=== PATIENT | female | born 1990 | race Caucasian/White ===

== ENCOUNTER 2020-06-19 11:29 | Outpatient (REF) | payer OTHER, SELFPAY | END 2020-06-19 11:30 | disposition home or self-care (01) | LOC: HO.LNP 11:29 | PROVIDERS: Visit Provider Hospitalist | DX: Z20.828 Contact with and (suspected) exposure to other viral communicable diseases (principal) | CPT/HCPCS: C9803; U0003 ==

== ENCOUNTER 2020-08-29 15:08 | Outpatient (REF) | payer OTHER, SELFPAY ==
[2020-08-30 12:28] LABS: BV Int Neg Control Negative (Negative); BV Int Pos Control Positive (Positive)
== END 2020-08-29 15:09 | disposition home or self-care (01) ==
LOC: HO.LAB 15:08
PROVIDERS: Visit Provider Nurse Practitioner Family
DX: Z11.3 Encounter for screening for infections with a predominantly sexual mode of transmission (principal)
CPT/HCPCS: 87480; 87510; 87660

== ENCOUNTER 2024-03-25 13:27 | Outpatient (AMB) | payer OTHER, SELFPAY ==
[2024-03-25 13:32] VITALS: BP 126/88; PULSE 72; O2SAT 98; BMI 27.2
--- NOTE | 2024-03-25 13:32 | MHC.PC.OV ---
Vital Signs 03/25/24 13:32 Height 5 ft 2 in Weight 149 lb BMI 27.2 BP 126/88 Blood Pressure Location Rt brachial Position Sitting Pulse 72 Pulse Source Pulse Oximeter Pulse Oximetry (%) 98 Oxygen Delivery Method Room Air Intake Visit Reasons: PE- see comments Intake Note: Pt is here today for PE. Allergies Sulfa (Sulfonamide Antibiotics) Allergy (Unknown, Verified 03/25/24 13:39) unknown sulfamethoxazole [From Bactrim] Allergy (Unknown, Verified 03/25/24 13:39) unknown trimethoprim [From Bactrim] Allergy (Unknown, Verified 03/25/24 13:39) unknown Medication List - Last Reconciled 03/25/24 by Hanh Moran MD albuterol sulfate 90 mcg/actuation inhalation amlodipine 2.5 mg PO DAILY metronidazole 0.75%(37.5mg/5gram) 1 appful vaginal DAILY 5 days Tobacco use date assessed: 03/25/24 Dental Screening Dental Screen Date: 03/25/24 Did you have a dental visit in the last 12 months?: Yes Did you have a dental problem in the last 6 months where you did not have access to dental care?: No Was dental information given to patient?: Patient has dentist HPI PE- see comments HPI Details Patient presents for physical. She reports of episodes of elevated blood pressure for the last year. She had a baby 2 years ago. Patient used to take amlodipine for hypertension before her 1st 4 years ago. She had 2 uneventful pregnancies without need to take antihypertensive medication. Her weight has been fluctuating but patient has been trying to is well-balanced diet and walk daily [facility] Medical History (Updated 03/25/24 @ 15:08 by Hanh Moran MD) Migraine Giron palsy HTN (hypertension) Surgical History History of surgery Family History Father No problems noted. Mother History of CVA (cerebrovascular accident) Mental health disorder HTN (hypertension) Social History Housing: House Patient Tobacco Use Status: Never used Tobacco e-Cigarette/Vaping Use: Never Used service: No Current occupational status: employed Cognitive needs: No Hearing needs: No Vision needs: Yes Questionnaire PHQ-9 Over the last 2 weeks, how often have you been bothered by any of the following problems? 1. Little interest or pleasure in doing things: not at all 2. Feeling down, depressed, or hopeless: not at all 3. Trouble falling or staying asleep, or sleeping too much: not at all 4. Feeling tired or having little energy: several days 5. Poor appetite or overeating: not at all 6. Feeling bad about yourself - or that you are a failure or have let yourself or your family down: not at all 7. Trouble concentrating on things, such as reading the newspaper or watching television: not at all 8. Moving or speaking so slowly that other people could have noticed. Or the opposite - being so fidgety or restless that you have been moving around a lot more than usual: not at all 9. Thoughts that you would be better off or of hurting yourself in some way: not at all Total score: 1 Depression Screening Interpretation: Negative Depression Screening Done: Yes 62603 - PHQ-9 Billing: Yes Source: Developed by Drs. Erasmo Rachel, Isabel Bennett, Lauro Ramírez and colleagues, with an educational venus from [employer]. Thrive Questionnaire Date Thrive assessed: 03/25/24 I am a: Patient What is your living situation today?: I have a steady place to live Within the past 12 months, did the food you bought not last and you didn't have the money to get more?: I choose not to answer this question Within the past 12 months, did you worry whether your food would run out before you got money to buy more?: I choose not to answer this question Do you have trouble paying for medicines?: No Do you have trouble getting transportation to medical appointments?: No Do you have trouble paying your heating and electricity bill?: No Do you have trouble taking care of your child, family member or friend?: No Do you have trouble with day-to-day activities such as bathing, preparing meals, shopping, managing finances, etc.?: No Are you currently unemployed and looking for a job?: No Are you interested in more education?: Yes Please select the resources that you would like help with: Housing/[facility] Currently or been in a relationship where the following occur: No concerns reported THRIVE Score: 0 AUDIT C Alcohol Use Questionnaire (AUDIT-C) 1. How often do you have a drink containing alcohol?: 2-4 times a month 2. How many drinks containing alcohol do you have on a typical day when you are drinking?: 1 or 2 3. How often do you have six or more drinks on one occasion?: Never Total Score: 2 RAMAN-7 AMB Questionnaire RAMAN-7 Date RAMAN - 7 assessed: 03/25/24 Feeling nervous, anxious, or on edge: 0 = Not at all Not being able to stop or control worryin = Not at all Worrying too much about different things: 1 = Several days Trouble relaxin = Several days Being so restless that it is hard to sit still: 0 = Not at all Becoming easily annoyed or irritable: 1 = Several days Feeling afraid as if something awful might happen: 0 = Not at all Total RAMAN-7 score (0-4 normal; 5-9 mild; 10-14 moderate; 15-21 severe): 3 Source: Developed by Drs. Erasmo Rachel, Isabel Bennett, Lauro Ramírez and colleagues, with an educational venus from [employer]. RAMAN-7 Assessment Billing RAMAN-7 Assessment Tool: RAMAN-7 Assessment 45356 Review of Systems Const All systems reviewed & are unremarkable except as noted in HPI and below Eyes Reports no additional complaints ENT Reports no additional complaints Card Reports no additional complaints Resp Reports no additional complaints GI Reports no additional complaints Physical exam (Primary Care) Vital Signs: Last Vital Signs Pulse 72 03/25/24 13:32 BP 126/88 03/25/24 13:32 Pulse Ox 98 03/25/24 13:32 Oxygen Delivery Method Room Air 03/25/24 13:32 BMI result Body Mass Index 27.2 Tobacco/Smoking Status: Tobacco use Status Tobacco use date assessed 03/25/24 03/25/24 13:44 Patient Tobacco Use Status Never used Tobacco 03/25/24 13:44 e-Cigarette/Vaping Use Never Used 03/25/24 13:44 PHQ-9: PHQ-9 Score PHQ-9: Total score 1 03/25/24 13:44 Depression Screening Interpretation: Negative Thrive Assessment: Date of Thrive Assessment Date Thrive assessed 03/25/24 03/25/24 13:44 Currently or been in a relationship where the following occur: No concerns reported Const General: no acute distress HENMT Head: Yes normal to inspection Face and sinus: Yes normal facial exam Mouth: Normal oral and palatal mucosa present Eyes General: appearance normal, both eyes and all related structures Neck Neck: Yes supple Resp Effort & Inspection: normal respiratory effort Auscultation: clear to auscultation bilaterally Cardio Rhythm: regular rhythm Heart sounds: S1 normal heart sound present and S2 normal heart sound present GI Inspection: Yes normal to inspection Palpation (GI): Soft to palpation Percussion: Yes normal to percussion Assessment and Plan Assessment & Plan (1) Annual physical exam: Code(s): Z00.00 - Encounter for general adult medical examination without abnormal findings Plan: Well-balanced diet regular exercise low-sodium diet discussed with the patient. She is up-to-date with the Pap smear by sales agent insurance (2) HTN (hypertension): Code(s): I10 - Essential (primary) hypertension Plan: Start 2.5 mg of amlodipine. Low-sodium diet regular exercise discussed with the patient and follow-up in 6 weeks. Patient will have a fasting blood work before Orders: Orders Complete Blood Count Auto Diff Today Z00.00 - Encounter for general adult medical examination without abnormal findings UA w Microscopic Today Z00.00 - Encounter for general adult medical examination without abnormal findings Comprehensive [place]. Panel Fast Today Z00.00 - Encounter for general adult medical examination without abnormal findings Lipid Panel Today Z00.00 - Encounter for general adult medical examination without abnormal findings Medications: New amlodipine 2.5 mg PO DAILY 90 tabs 0RF Changed From albuterol sulfate 90 mcg/actuation inhalation To albuterol sulfate 90 mcg/actuation 2 puffs inhalation Q6-8H 30 days 6.7 grams 4RF Coding Level of Care Code Est Pt Prev Care 18-39y(28417) Diagnoses Annual physical exam Z00.00 HTN (hypertension) I10 Additional Codes RAMAN-7 Assessment Billing - RAMAN-7 Assessment Tool: RAMAN-7 Assessment 45593 ([id number])
== END 2024-03-25 14:30 | disposition home or self-care (01) ==
PROVIDERS: PCP Internal Medicine; Visit Provider Internal Medicine
DX: Z00.00 Encounter for general adult medical examination without abnormal findings (principal); I10 Essential (primary) hypertension
CPT/HCPCS: 99395

== ENCOUNTER 2024-06-04 12:34 | Outpatient (AMB) | payer OTHER, SELFPAY ==
[2024-06-04 12:43] VITALS: BP 138/80; PULSE 65; O2SAT 98; BMI 27.4
--- NOTE | 2024-06-04 12:43 | A.OFFPC_ITS ---
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 Accompanied by: Self / Same As Patient Allergies Sulfa (Sulfonamide Antibiotics) Allergy (Unknown, Verified 06/04/24 12:44) unknown sulfamethoxazole [From Bactrim] Allergy (Unknown, Verified 06/04/24 12:44) unknown trimethoprim [From Bactrim] Allergy (Unknown, Verified 06/04/24 12:44) unknown Medication List - Last Reconciled 06/04/24 by Hanh Moran MD amlodipine 2.5 mg PO DAILY Ventolin HFA 90 mcg/actuation (albuterol sulfate) 2 puffs inhalation Q6-8H 30 days NS Tobacco use date assessed: 03/25/24 Dental Screening Dental Screen Date: 03/25/24 HPI 6 Week Bld Pres Check HPI Details Patient presents for the follow-up on hypertension. She has been tolerating 2.5 mg of amlodipine,exercising regularly and eating well-balanced diet. [facility] Medical History Migraine Giron palsy HTN (hypertension) Surgical History History of surgery Family History Father No problems noted. Mother History of CVA (cerebrovascular accident) Mental health disorder HTN (hypertension) Social History Housing: House Patient Tobacco Use Status: Never used Tobacco e-Cigarette/Vaping Use: Never Used service: No Current occupational status: employed Cognitive needs: No Hearing needs: No Vision needs: Yes Questionnaire Thrive Questionnaire Date Thrive assessed: 03/22/24 I am a: Patient What is your living situation today?: I have a steady place to live Within the past 12 months, did the food you bought not last and you didn't have the money to get more?: I choose not to answer this question Within the past 12 months, did you worry whether your food would run out before you got money to buy more?: I choose not to answer this question Do you have trouble paying for medicines?: No Do you have trouble getting transportation to medical appointments?: No Do you have trouble paying your heating and electricity bill?: No Do you have trouble taking care of your child, family member or friend?: No Do you have trouble with day-to-day activities such as bathing, preparing meals, shopping, managing finances, etc.?: No Are you currently unemployed and looking for a job?: No Are you interested in more education?: Yes Please select the resources that you would like help with: None Currently or been in a relationship where the following occur: No concerns reported THRIVE Score: 0 RAMAN-7 AMB Questionnaire RAMAN-7 Date RAMAN - 7 assessed: 03/25/24 Source: Developed by Drs. Erasmo Rachel, Isabel Bennett, Lauro Ramírez and colleagues, with an educational venus from [employer]. Review of Systems Const All systems reviewed & are unremarkable except as noted in HPI and below Card Reports no additional complaints Resp Reports no additional complaints GI Reports no additional complaints Physical exam (Primary Care) Vital Signs: Last Vital Signs Pulse 65 06/04/24 12:43 BP 138/80 06/04/24 12:43 Pulse Ox 98 06/04/24 12:43 BMI result Body Mass Index 27.4 Tobacco/Smoking Status: Tobacco use Status Tobacco use date assessed 03/25/24 06/04/24 12:47 Patient Tobacco Use Status Never used Tobacco 06/04/24 12:47 e-Cigarette/Vaping Use Never Used 06/04/24 12:47 Thrive Assessment: Date of Thrive Assessment Date Thrive assessed 03/22/24 06/04/24 12:47 Currently or been in a relationship where the following occur: No concerns reported Const General: no acute distress Neck Neck: Yes supple Resp Effort & Inspection: normal respiratory effort Auscultation: clear to auscultation bilaterally Cardio Rhythm: regular rhythm Heart sounds: S1 normal heart sound present and S2 normal heart sound present Coding Level of Care Code Est Pt Level 3 (16810) Diagnoses HTN (hypertension) I10 Assessment & Plan Assessment & Plan (1) HTN (hypertension): Code(s): I10 - Essential (primary) hypertension Category: Medical Plan: Increase amlodipine to 5 mg a day patient will return for fasting blood work follow-up in 6 weeks Medications: New amlodipine 5 mg PO DAILY 90 tabs 0RF Discontinued amlodipine Discontinued Reason: Doctor's Order 2.5 mg PO DAILY 90 tabs 0RF
== END 2024-06-04 13:05 | disposition home or self-care (01) ==
PROVIDERS: PCP Internal Medicine; Visit Provider Internal Medicine
DX: I10 Essential (primary) hypertension (principal)

== ENCOUNTER → 2024-06-04 12:34 | Outpatient (BNVA) | payer OTHER, SELFPAY | PROVIDERS: PCP Internal Medicine; Visit Provider Internal Medicine | DX: I10 Essential (primary) hypertension (principal); Z79.899 Other long term (current) drug therapy | CPT/HCPCS: 99212 ==

== ENCOUNTER 2024-07-22 07:36 | Outpatient (REF) | payer OTHER, SELFPAY ==
[2024-07-22 10:14] LABS: MANUAL DIFF FLAG NO
[2024-07-22 10:25] LABS: Basophils Percent Auto 0.8 % (0-2); Eosinophils Percent Auto 1.1 % (0-4); Hematocrit 35.9 % (37.0-47.0); Hemoglobin 12.1 g/dl (12.0-16.0); Imm Gran Abs Auto 0.01 X10*3/uL (0.00-0.03); Imm Gran Pct Auto 0.3 % (0.0-0.4); Lymphocytes Absolute Auto 1.5 X10*3/uL (1.2-4.9); Lymphocytes Percent Auto 40.9 % (20-40); Mean Corpuscular HGB Conc 33.7 g/dl (31.0-35.0); Mean Corpuscular Hemoglobin 28.9 pg (27.0-33.0); Mean Corpuscular Volume 85.9 fL (80.0-98.0); Mean Platelet Volume 10.3 fL (9.4-12.3); Monocytes Absolute Auto 0.3 X10*3/uL (0.1-1.2); Monocytes Percent Auto 8.1 % (2-11); Neutrophils Absolute Auto 1.7 x10*3/uL (2.0-8.3); Neutrophils Percent Auto 48.8 % (45-73); Platelet Count 265 X10*3/uL (160-400); Red Blood Count 4.18 X10*6/uL (4.20-5.50); Red Cell Distribution Width 11.9 % (11.0-16.0); White Blood Count 3.6 X10*3/uL (4.8-10.8)
[2024-07-22 10:44] LABS: Alanine Aminotransferase 9 U/L (0-31); Alkaline Phosphatase 50 U/L (39-117); Anion Gap 10 (12-20); Aspartate Amino Transferase 19 U/L (5-31); Bilirubin Total 0.9 mg/dL (0.0-1.0); Blood Urea Nitrogen 11 mg/dL (9-16); Calcium 9.4 mg/dL (8.4-10.2); Carbon Dioxide 27 mmol/L (22-29); Chloride 107 mmol/L (96-108); Cholesterol 160 mg/dL (<200); Estimated Glomerular Filt Rate > 60; Glucose Fasting 83 mg/dL (60-99); HDL Cholesterol 60 mg/dL (>40); LDL Cholesterol Calculated 90 mg/dL (<100); Potassium 3.5 mmol/L (3.3-5.1); Sodium 140 mmol/L (135-145); Triglycerides 54 mg/dL (<150)
[2024-07-22 11:18] LABS: Appearance Urine Clear; Color Urine Dark Yellow; Glucose Urine UA Negative (Negative); Leukocyte Esterase Urine Trace (Negative); Nitrite Urine Negative (Negative); PH 6.5 (5.0-9.0); UMIC TRIGGER UA YES; Urine Blood Negative (Negative); Urine Ketones Trace mg/dL (Negative); Urine Protein Negative (Neg-Trace)
[2024-07-22 11:32] LABS: Bacteria Urine None Seen (None Seen); Hyaline Casts Urine 0-2 /LPF (0-2); Squamous Epithelial Cell Urine 0-2 /HPF (0-2); WBC Urine 0-5 /HPF (0-5)
[2024-07-22 11:34] LABS: RBC Urine 0-2 /HPF (0-2)
== END 2024-07-22 07:37 | disposition home or self-care (01) ==
LOC: HO.HMGCLDS 07:36
PROVIDERS: PCP Internal Medicine; Visit Provider Internal Medicine
DX: Z00.00 Encounter for general adult medical examination without abnormal findings (principal)
CPT/HCPCS: 36415; 80053; 80061; 81001; 85025

== ENCOUNTER 2024-08-20 08:46 | Outpatient (REF) | payer OTHER, SELFPAY ==
[2024-08-20 14:40] LABS: Bacterial Vaginosis PCR NEGATIVE (Negative); Candida Group PCR NOT DETECTED (Not Detect); Candida glab krusei PCR DETECTED (Not Detect); Trichomonas vaginalis PCR NOT DETECTED (Not Detect)
== END 2024-08-20 08:47 | disposition home or self-care (01) ==
LOC: HO.LAB 08:46
PROVIDERS: PCP Internal Medicine; Visit Provider Internal Medicine
DX: N76.0 Acute vaginitis (principal); I10 Essential (primary) hypertension
CPT/HCPCS: 81515; 96127; 99212

== ENCOUNTER 2024-08-20 08:46 | Outpatient (AMB) | payer OTHER, SELFPAY ==
[2024-08-20 08:49] VITALS: BP 118/80; PULSE 71; O2SAT 100; BMI 27.1
--- NOTE | 2024-08-20 08:49 | MHC.PC.OV ---
Vital Signs 08/20/24 08:49 Height 5 ft 2 in Weight 148 lb BMI 27.1 BP 118/80 Blood Pressure Location Lt brachial Position Sitting Pulse 71 Pulse Source Pulse Oximeter Pulse Oximetry (%) 100 Oxygen Delivery Method Room Air Intake Visit Reasons: 6 weeks follow up Intake Note: Pt is here today for 6 weeks follow up visit. Allergies Sulfa (Sulfonamide Antibiotics) Allergy (Unknown, Verified 08/20/24 08:50) unknown sulfamethoxazole [From Bactrim] Allergy (Unknown, Verified 08/20/24 08:50) unknown trimethoprim [From Bactrim] Allergy (Unknown, Verified 08/20/24 08:50) unknown Medication List - Last Reconciled 08/20/24 by Hanh Moran MD amlodipine 5 mg PO DAILY Ventolin HFA 90 mcg/actuation (albuterol sulfate) 2 puffs inhalation Q6-8H 30 days NS Tobacco use date assessed: 08/20/24 Dental Screening Dental Screen Date: 08/20/24 Did you have a dental visit in the last 12 months?: Yes Did you have a dental problem in the last 6 months where you did not have access to dental care?: No Was dental information given to patient?: Patient has dentist HPI 6 weeks follow up HPI Details Pt presents for f/u HTN, well controlled on Amlodipne. Patient reports vaginal discharge similar to when she was diagnosed with BV. [facility] Medical History Migraine Giron palsy HTN (hypertension) Surgical History History of surgery Family History Father No problems noted. 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 1. Little interest or pleasure in doing things: not at all 2. Feeling down, depressed, or hopeless: not at all 3. Trouble falling or staying asleep, or sleeping too much: not at all 4. Feeling tired or having little energy: not at all 5. Poor appetite or overeating: not at all 6. Feeling bad about yourself - or that you are a failure or have let yourself or your family down: not at all 7. Trouble concentrating on things, such as reading the newspaper or watching television: not at all 8. Moving or speaking so slowly that other people could have noticed. Or the opposite - being so fidgety or restless that you have been moving around a lot more than usual: not at all 9. Thoughts that you would be better off or of hurting yourself in some way: not at all Total score: 0 Depression Screening Interpretation: Negative Depression Screening Done: Yes 11449 - PHQ-9 Billing: Yes Source: Developed by Drs. Erasmo Rachel, Isabel Bennett, Lauro Ramírez and colleagues, with an educational venus from [employer]. Thrive Questionnaire Date Thrive assessed: 08/19/24 I am a: Patient What is your living situation today?: I have a steady place to live Within the past 12 months, did the food you bought not last and you didn't have the money to get more?: Never true Within the past 12 months, did you worry whether your food would run out before you got money to buy more?: Never true Do you have trouble paying for medicines?: No Do you have trouble getting transportation to medical appointments?: No Do you have trouble paying your heating and electricity bill?: No Do you have trouble taking care of your child, family member or friend?: No Do you have trouble with day-to-day activities such as bathing, preparing meals, shopping, managing finances, etc.?: No Are you currently unemployed and looking for a job?: No Are you interested in more education?: Yes Please select the resources that you would like help with: None Currently or been in a relationship where the following occur: No concerns reported THRIVE Score: 0 AUDIT C Alcohol Use Questionnaire (AUDIT-C) 1. How often do you have a drink containing alcohol?: Monthly or less 2. How many drinks containing alcohol do you have on a typical day when you are drinking?: 1 or 2 3. How often do you have six or more drinks on one occasion?: Never Total Score: 1 RAMAN-7 AMB Questionnaire RAMAN-7 Date RAMAN - 7 assessed: 08/20/24 Feeling nervous, anxious, or on edge: 0 = Not at all Not being able to stop or control worryin = Not at all Worrying too much about different things: 0 = Not at all Trouble relaxin = Several days Being so restless that it is hard to sit still: 0 = Not at all Becoming easily annoyed or irritable: 0 = Not at all Feeling afraid as if something awful might happen: 0 = Not at all Total RAMAN-7 score (0-4 normal; 5-9 mild; 10-14 moderate; 15-21 severe): 1 Source: Developed by Drs. Erasmo Rachel, Isabel Bennett, Lauro Ramírez and colleagues, with an educational venus from [employer]. RAMAN-7 Assessment Billing RAMAN-7 Assessment Tool: RAMAN-7 Assessment 96318 Review of Systems Const All systems reviewed & are unremarkable except as noted in HPI and below Eyes Reports no additional complaints ENT Reports no additional complaints Card Reports no additional complaints Resp Reports no additional complaints GI Reports no additional complaints Reports no additional complaints Physical exam (Primary Care) Vital Signs: Last Vital Signs Pulse 71 08/20/24 08:49 BP 118/80 08/20/24 08:49 Pulse Ox 100 08/20/24 08:49 Oxygen Delivery Method Room Air 08/20/24 08:49 BMI result Body Mass Index 27.1 Tobacco/Smoking Status: Tobacco use Status Tobacco use date assessed 08/20/24 08/20/24 08:55 Patient Tobacco Use Status Never used Tobacco 08/20/24 08:49 e-Cigarette/Vaping Use Never Used 08/20/24 08:49 PHQ-9: PHQ-9 Score PHQ-9: Total score 0 08/20/24 08:55 Depression Screening Interpretation: Negative Thrive Assessment: Date of Thrive Assessment Date Thrive assessed 08/19/24 08/20/24 08:49 Currently or been in a relationship where the following occur: No concerns reported Const General: no acute distress HENMT Head: Yes normal to inspection General nose exam: Normal external nose present Face and sinus: Yes normal facial exam Mouth: Normal oral and palatal mucosa present Eyes General: appearance normal, both eyes and all related structures Neck Neck: Yes no lymphadenopathy and Yes supple Resp Effort & Inspection: normal respiratory effort Auscultation: clear to auscultation bilaterally Cardio Rhythm: regular rhythm Heart sounds: S1 normal heart sound present and S2 normal heart sound present GI Inspection: Yes normal to inspection Palpation (GI): Soft to palpation Percussion: Yes normal to percussion Auscultation: normal bowel sounds Coding Level of Care Code Est Pt Level 3 (05816) Diagnoses HTN (hypertension) I10 Vaginosis N76.0 Additional Codes RAMAN-7 Assessment Billing - RAMAN-7 Assessment Tool: RAMAN-7 Assessment 99920 ([id number]) PHQ-9 - 83586 - PHQ-9 Billing: Yes ([id number]) Assessment & Plan Assessment & Plan (1) HTN (hypertension): Code(s): I10 - Essential (primary) hypertension Category: Medical Plan: Continue amlodipine regular physical activity patient will return for physical in April (2) Vaginosis: Code(s): N76.0 - Acute vaginitis Category: Medical Plan: Check vaginal swab Orders: Orders Bacterial Vaginosis Panel Today N76.0 - Acute vaginitis Medications: Refilled amlodipine 5 mg PO DAILY 90 tabs 3RF
== END 2024-08-20 09:34 | disposition home or self-care (01) ==
PROVIDERS: PCP Internal Medicine; Visit Provider Internal Medicine
DX: I10 Essential (primary) hypertension (principal); N76.0 Acute vaginitis

== ENCOUNTER 2024-12-24 08:26 | Outpatient (AMB) | payer OTHER, SELFPAY ==
[2024-12-24 08:36] VITALS: BP 118/78; PULSE 74; TEMP 36.8; O2SAT 98
--- NOTE | 2024-12-24 08:36 | AM.OFFWIN_ITS ---
Intake Vital Signs 12/24/24 08:36 Height 5 ft 2 in BP 118/78 Blood Pressure Location Rt brachial Position Sitting Pulse 74 Pulse Source Pulse Oximeter Temp 98.2 F Temp Source Oral Pulse Oximetry (%) 98 Intake Visit Reasons: EP ? strep throat and UTI Patient Tobacco Use Status: Never used Tobacco Allergies Sulfa (Sulfonamide Antibiotics) Allergy (Unknown, Verified 12/24/24 08:36) unknown sulfamethoxazole [From Bactrim] Allergy (Unknown, Verified 12/24/24 08:36) unknown trimethoprim [From Bactrim] Allergy (Unknown, Verified 12/24/24 08:36) unknown Do you need a note to return to daycare/school/sports/work: Yes PFSH Medical History Migraine Giron palsy HTN (hypertension) Surgical History History of surgery Family History Father No problems noted. 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[employer] Housing: House Patient Tobacco Use Status: Never used Tobacco e-Cigarette/Vaping Use: Never Used service: No Current occupational status: employed Cognitive needs: No Hearing needs: No Vision needs: Yes Physical Exam Vital Signs: Last Vital Signs Temp 98.2 F 12/24/24 08:36 Pulse 74 12/24/24 08:36 BP 118/78 12/24/24 08:36 Pulse Ox 98 12/24/24 08:36 Results AMB Urinalysis, Automated UA Leukoctes 0 Petra/uL Last Edit by Radha Baugh CMA on 12/24/24 08:44 UA Nitrite Negative Last Edit by Radha Baugh CMA on 12/24/24 08:44 UA Urobilinogen 0.2 mg/dL Last Edit by Radah Baugh CMA on 12/24/24 08:44 UA Protein 0 mg/dL Last Edit by Radha Baugh CMA on 12/24/24 08:44 UA pH 7.0 Last Edit by Radha Baugh CMA on 12/24/24 08:44 UA Blood 10 Donovan/uL Last Edit by Radha Baugh CMA on 12/24/24 08:44 UA Specific [place] 1.010 Last Edit by Radha Baugh CMA on 12/24/24 08:44 UA Ketone Negative Last Edit by Radha Baugh CMA on 12/24/24 08:44 UA Bilirubin 0 mg/dL Last Edit by Radha Baugh CMA on 12/24/24 08:44 UA Glucose 0 mg/dL Last Edit by Radha Baugh CMA on 12/24/24 08:44 AMB Rapid Strep AMB Rapid Strep Negative Last Edit by Irving Bradley CMA on 12/24/24 08 :48 Results Reviewed Results Reviewed: Laboratory Last Values Urine pH (Auto) 7.0 12/24/24 08:42 Specific [place] (Auto) 1.010 12/24/24 08:42 Urine Protein (Auto) 0 mg/dL 12/24/24 08:42 Glucose (UA)(Auto) 0 mg/dL 12/24/24 08:42 Urine Ketones (Auto) Negative 12/24/24 08:42 Urine Blood (Auto) 10 Donovan/uL 12/24/24 08:42 Urine Nitrite (Auto) Negative 12/24/24 08:42 Urine Bilirubin (Auto) 0 mg/dL 12/24/24 08:42 Urine Urobilinogen (Auto) 0.2 mg/dL 12/24/24 08:42 Leukocyte Esterase (Auto) 0 Petra/uL 12/24/24 08:42 Strep Scn Rapid Clinic Negative 12/24/24 08:47 Assessment & Plan Assessment & Plan (1) Sore throat: Code(s): J02.9 - Acute pharyngitis, unspecified Plan Patient left before being seen by provider due to family emergency. No assess ment performed. Orders: Orders AMB Urinalysis Automated Today Z13.9 - Encounter for screening, unspecified AMB Rapid Strep Screen Today Z13.9 - Encounter for screening, unspecified Coding Level of Care Code Left Without Being Seen Diagnoses Sore throat J02.9
--- OUTSIDE RECORDS SUMMARY | 2024-12-24 08:37 | XMS_ITS | Encounter Summary ---
Author Organization [facility] Address [address] [place] [address] Care Team Providers Care Primary Special Educator Name Role Phone Wilfrid Razo Primary Care Provider [phone] Abbey Rubin [facility] Unavailable [phone] Janey Rodarte MD Primary Care Provider [phone] Reason for Visit * Reason Comments Medication Refill Encounter Details Date Type Department Care Team (Late st Contact Info) Description 11/04/2017 Refill [facility] [address] [place] [phone] Lisbeth Bloom MD [address] [place], [place] [phone] Encounter for gynecological examination without abnormal finding; Encounter for surveillance of contraceptive pills Social History Tobacco Use Types Packs/Day Years Used Date Smoking Tobacco: Never Smokeless Tobacco: Never Alcohol Use Standard Drinks/Week Comments Yes 1 (1 standard drink = 0.6 oz pur e alcohol) Comments No Sex and Gender Information Value Date Recorded Sex Assigned at Not on file Legal Sex Female 1:59 PM EDT Gender Identity Not on file Sexual Orientation Not on file documented as of this encounter Miscellaneous Notes * Telephone Encounter - Lisbeth Bloom MD - 11/04/2017 9:51 AM EDT Patient does have an upcoming appointment and so will refill one time and if all well at exam, provider can refill for the year documented in this encounter Plan of Treatment Not on file documented as of this encounter Visit Diagnoses Diagnosis Encounter for gynecological examination without abnormal finding Encounter for surveillance of contraceptive pills documented in this encounter Care Teams Primary Special Educator Relationship Specialty Start Date End Date LauritaWilfrid leon DO [place] PCP - General Internal Medicine 07/08/16 02/11/19 Janey Rodarte MD [address] [address] PCP - General Internal Medicine 02/12/19 09/30/21 Abbey Rubin, SOFTWARE VALIDATION ENGINEER [address] [facility] [address] [place] [address] [facility] Community Wood Grinder 06/29/1807/10 documented as of this encounter
--- OUTSIDE RECORDS SUMMARY | 2024-12-24 08:37 | XMS_ITS | Encounter Summary ---
Author Organization [facility] Address [address] [place] [address] Care Team Providers Care Sweatband Separator Name Role Phone Wilfrid Razo DO Primary Care Provider [phone] Abbey Rubin [facility] Unavailable [phone] Janey Rodarte MD Primary Care Provider [phone] Encounter Details Date Type Department Care Team (Late st Contact Info) Description 10/01/2017 Scanned Document formerly [facility] [address] [phone] Wilfrid Razo DO [address] [place] [address] Social History Tobacco Use Types Packs/Day Years Used Date Smoking Tobacco: Never Alcohol Use Standard Drinks/Week Comments Not Asked 1 (1 standard drink = 0.6 oz pur e alcohol) Comments No Sex and Gender Information Value Date Recorded Sex Assigned at Not on file Legal Sex Female 1:59 PM EDT Gender Identity Not on file Sexual Orientation Not on file documented as of this encounter Plan of Treatment Not on file documented as of this encounter Visit Diagnoses Not on filedocumented in this encounter Care Teams Sweatband Separator Relationship Specialty Start Date End Date Wilfrid Razo DO PCP - General Internal Medicine 07/08/16 02/11/19 Janey Rodarte MD [address] [facility] [address] PCP - General Internal Medicine 02/12/19 09/30/21 Abbey Rubin, [facility] [address] [address] [facility] Community Crepe Box Tender 06/29/1807/10 documented as of this encounter
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
--- OUTSIDE RECORDS SUMMARY | 2024-12-24 08:37 | XMS_ITS | Encounter Summary ---
Author Organization [facility] Address [address] [place] [address] Care Team Providers Care Automobile Rental Representative Name Role Phone VinceAbbey Mcmullen [employer]LE [employer]ER Unavailable Janey Rodarte MD Primary Care Provider Reason for Visit * Reason Comments Medication Refill Encounter Details Date Type Department Care Team (Late st Contact Info) Description 05/17/2019 Refill [facility] [address] [place] [phone] Lisbeth Bloom MD [address] [place] [phone] Encounter for surveillance of contraceptive pills Social [...] encounter Miscellaneous Notes * Telephone Encounter - Michelle Feng RN - 05/20/2019 9:[address] Peres patient needs an appointment for annual and to discuss control. Patient calledand message left asking her to call back and she has not responded to that message as of today. * Telephone Encounter - Michelle Feng RN - 05/17/2019 2:42 PM EDT Left message asking her to call back. documented in this encounter Plan of Treatment Not on file documented as of this encounter Visit Diagnoses Diagnosis Encounter for surveillance of contraceptive pills documented in this encounter Care Teams Automobile Rental Representative Relationship Specialty Start Date End Date Janey Rodarte MD [address] [address] PCP - General Internal Medicine 02/12/19 09/30/21 Abbey Rubin, SOLE DYER [address] [facility] 4 [place] [address] [facility] Community Pharmacy Retail Support Specialist 06/29/1807/10 documented as of this encounter
--- OUTSIDE RECORDS SUMMARY | 2024-12-24 08:37 | XMS_ITS | Encounter Summary ---
Author Organization [facility] Address [address] [place] [address] Care Team Providers Care Manager Pest Name Role Phone Wilfrid Razo DO Primary Care Provider [phone] Abbey Rubin [facility] Unavailable [phone] Janey Rodarte MD Primary Care Provider [phone] Reason for Visit * Reason Comments Medication Refill Encounter Details Date Type Department Care Team (Late st Contact Info) Description 12/31/2018 Refill [facility] [address] [phone] Wilfrid Razo DO [address] [place] [address] Essential hypertension Social History Tobacco Use Types Packs/Day Years [...] as of this encounter Visit Diagnoses Diagnosis Essential hypertension Unspecified essential hypertension documented in this encounter Care Teams Manager Pest Relationship Specialty Start Date End Date Wilfrid Razo DO PCP - General Internal Medicine 07/08/16 02/11/19 Janey Rodarte MD [address] [address] PCP - General Internal Medicine 02/12/19 09/30/21 Abbey Rubin, B2B SALES REPRESENTATIVE [address] [address] [facility] Community Affiliate Marketing Manager 06/29/1807/10 documented as of this encounter
--- OUTSIDE RECORDS SUMMARY | 2024-12-24 08:37 | XMS_ITS | Encounter Summary ---
Author Organization [facility] Address [address] [place] [address] Care Team Providers Care Unit Aide Tech Name Role Phone Hanh Moran MD Primary Care Provider Emily oquendo Encounter Details Date Type Department Care Team Description 04/15/2022 Orders Only Medical Records [address] [place] [address] Hussain Childers CNM [address] [place] [address] Social History Tobacco Use Types Packs/Day Years Used Date Smoking Tobacco: Never Smokeless Tobacco: Never Alcohol Use Standard Drinks/Week Comments Not Currently 2 (1 standard drink = 0.6 oz pur e alcohol) not drinking since Alcohol Habits Answer Date Recorded How often do you have a drink containing alcohol ? Never 07/21/2019 How many drinks containing a lcohol do you have on a typical day when you are drinking? Not asked How often do you have six or more drinks on one occasion? Not asked Sex Assigned at Date Recorded Not on file Job Start Date Occupation Industry Not on file Not on file Not on file COVID-19 Exposure Response Date Recorded In the last 10 days, have yo u been in contact with someone who was confirmed or suspected to have Coronavirus/COVID-19? No / Unsure 04/12/2022 11:01 AM EDT documented as of this encounter Plan of Treatment Not on file documented as of this encounter Procedures Procedure Name Priority Date/Time Associated Diagnosis Comments OUTSIDE LAB Routine 04/15/2022 documented in this encounter Results * OUTSIDE LAB (04/15/2022) Hussain Childers CNM LAB documented in this encounter Visit Diagnoses Not on filedocumented in this encounter Care Teams Unit Aide Tech Relationship Specialty Start Date End Date Hanh Moran MD PCP - General Internal Medicine 09/08/19 documented as of this encounter
--- OUTSIDE RECORDS SUMMARY | 2024-12-24 08:37 | XMS_ITS | Encounter Summary ---
Author Organization [facility] Address [address] [place] [address] Care Team Providers Care Software Developer Name Role Phone Abbey Donald MD Primary Care Provider Hanh Nobles MD Primary Care Provider Emily oquendo Encounter Details Date Type Department Care Team Description 08/31/2019 Telephone OBGYN - [place] [address] [place] [address] Cynthia Arroyo CNM [address] [place], [place] [phone] Social History Tobacco Use Types Packs/Day Years Used Date Smoking Tobacco: Never Smokeless Tobacco: Never Alcohol Use Standard Drinks/Week Comments No 2 (1 standard drink = 0.6 oz pur e alcohol) not since Alcohol Habits Answer Date Recorded How [...] file Not on file Not on file documented as of this encounter Miscellaneous Notes * Telephone Encounter - Ana Soni M.A. - 08/31/2019 10:47 AM EST ----- Message from Cynthia Arroyo CNM sent at 08/30/2019 4:43 PM EST ----- Please call patient inform her she is positive for a UTI, amoxicillin sent to pharmacy for treatment. documented in this encounter Plan of Treatment Not on file documented as of this encounter Visit Diagnoses Not on filedocumented in this encounter Care Teams Software Developer Relationship Specialty Start Date End Date Abbey Donald MD PCP - General Internal Medicine 08/16/19 09/07/19 Hanh Moran MD PCP - General Internal Medicine 09/08/19 documented as of this encounter
--- OUTSIDE RECORDS SUMMARY | 2024-12-24 08:37 | XMS_ITS | Encounter Summary ---
Author Organization [facility] Address [address] [place] [address] Care Team Providers Care Welfare Project Manager Name Role Phone Hanh Moran MD Primary Care Provider Unavaila ble Reason for Visit * Reason Onset Date Irena Giron 11/27/2019 Encounter Details Date Type Department Care Team Description 11/27/2019 Telephone Adult Urgent Care - [address] [address] Hanh Moran MD Cramps Social History Tobacco Use Types Packs/Day Years [...] encounter Miscellaneous Notes * Telephone Encounter - Hussain Childers CNM - 11/27/2019 11:48 AM EDT Called patient x2 to return call, message left, waiting to hear from patient regarding cramping Hussain Childers CNM * Telephone Encounter - Augusta Flor - 11/27/2019 11:28 AM EDT Patient is 31 weeks , 1st child, having cramping, no appitite documented in this encounter Plan of Treatment Not on file documented as of this encounter Visit Diagnoses Not on filedocumented in this encounter Care Teams Welfare Project Manager Relationship Specialty Start Date End Date Hanh Moran MD PCP - General Internal Medicine 09/08/19 documented as of this encounter
--- OUTSIDE RECORDS SUMMARY | 2024-12-24 08:37 | XMS_ITS | Encounter Summary ---
Author Organization [facility] Address [address] [place] [address] Care Team Providers Care Assistant To The Vice President Name Role Phone Wilfrid Razo DO Primary Care Provider [phone] Abbey Rubin [facility] Unavailable [phone] Janey Rodarte MD Primary Care Provider [phone] Reason for Visit * Reason Comments Medication Refill Encounter Details Date Type Department Care Team (Late st Contact Info) Description 02/05/2019 Refill [facility] [address] [place] [phone] Barrett Gallegos MD Needs valid address Encounter for surveillance of contraceptive pills Social [...] pills documented in this encounter Care Teams Assistant To The Vice President Relationship Specialty Start Date End Date Wilfrid Razo DO PCP - General Internal Medicine 07/08/16 02/11/19 Janey Rodarte MD [address] [facility] [address] PCP - General Internal Medicine 02/12/19 09/30/21 Abbey Rubin, [facility] [address] [facility] 4 [place] [address] [facility] Community Tech Ed/Woodshop Teacher 06/29/1807/10 documented as of this encounter
--- OUTSIDE RECORDS SUMMARY | 2024-12-24 08:38 | XMS_ITS | Encounter Summary ---
Author Organization [facility] Address [address] [place] [address] Care Team Providers Care Armament Mechanic Name Role Phone Hanh Moran MD Primary Care Provider [phone] Encounter Details Date Type Department Care Team (Late st Contact Info) Description 06/22/2024 Lab Requisition [facility] - Main Lab [address] [facility] [place] [phone] Malaika Garcia NP [address] [address] Frequency of micturition Social History Tobacco Use Types Packs/Day Years Used Date Smoking Tobacco: Never Smokeless Tobacco: Never Alcohol Use Standard Drinks/Week Comments Not Currently 2 (1 standard drink = 0.6 oz pur e alcohol) Comments Unknown Sex and Gender Information Value Date Recorded Sex Assigned at Not on file Legal Sex Female 8:30 PM EST Gender Identity Not on file Sexual Orientation Not on file documented as of this encounter Plan of Treatment Not on file documented as of this encounter Procedures Procedure Name Priority Date/Time Associated Diagnosis Comments BACTERIAL IDENTIFICATION AND SUSCEPTIBILITY, AEROBIC Routine 06/21/2024 12:00 AM EST Frequency of micturition documented in this encounter Results * Bacterial identification and susceptibility, aerobic (06/21/2024 12:00 AM EST) Culture, Bacterial ID and Sensitivity Normal harris isolated 06/23/2024 11:23 AM EST [facility] Other Topography unknown / Unknown 06/21/2024 06/22/2024 10:37 AM EST us Malaika Garcia WATER ATTENDANT LAB MICROBIOLOGY - GENERA L ORDERABLES Final Result [facility] [address] [place] [address], documented in this encounter Visit Diagnoses Diagnosis Frequency of micturition Urinary frequency documented in this encounter Care Teams Armament Mechanic Relationship Specialty Start Date End Date Hanh Moran MD PCP - General Internal Medicine 09/08/19 documented as of this encounter
--- OUTSIDE RECORDS SUMMARY | 2024-12-24 08:38 | XMS_ITS | Encounter Summary ---
Author Organization [facility] Address [address] [place] [address] Care Team Providers Care Inward Toll Operator Name Role Phone Hanh Moran MD Primary Care Provider [phone] Encounter Details Date Type Department Care Team (Late st Contact Info) Description 08/20/2024 Lab Requisition [facility] - Main Lab [address] [place] [phone] Stanley Drake MD [address] [facility] [address] [place] [address] Dysuria Social History Tobacco Use Types Packs/Day Years [...] Comments BACTERIAL IDENTIFICATION AND SUSCEPTIBILITY, AEROBIC Routine 08/19/2024 12:00 AM EST Dysuria documented in this encounter Results * Bacterial identification and susceptibility, aerobic (08/19/2024 12:00 AM EST) Culture, Bacterial ID and Sensitivity Mixed urogenital harris, no uropathogens present. Suggest repeat specimen, if clinically indicated. 08/20/2024 11:23 AM EST [facility] Other Urine specimen from urethra / Unknown 08/19/2024 08/20/2024 10:48 AM EST Stanley Drake MD LAB MICROBIOLOGY - G ENERAL ORDERABLES Final Result [facility] [address] [place] [address], documented in this encounter Visit Diagnoses Diagnosis Dysuria documented in this encounter Care Teams Inward Toll Operator Relationship Specialty Start Date End Date Hanh Moran MD PCP - General Internal Medicine 09/08/19 documented as of this encounter
--- OUTSIDE RECORDS SUMMARY | 2024-12-24 08:38 | XMS_ITS | Encounter Summary ---
Author Organization [facility] Address [address] [place] [address] Care Team Providers Care Composition Weatherboard Installer Name Role Phone Hanh Moran MD Primary Care Provider [phone] Encounter Details Date Type Department Care Team (Late st Contact Info) Description 08/17/2024 Lab Requisition [facility] - Main Lab [address] [place] [phone] Stanley Drake MD [address] [facility] [address] [place] [address] Dysuria Social History Tobacco Use Types Packs/Day [...] Comments BACTERIAL IDENTIFICATION AND SUSCEPTIBILITY, AEROBIC Routine 08/16/2024 12:00 AM EST Dysuria documented in this encounter Results * Bacterial identification and susceptibility, aerobic (08/16/2024 12:00 AM EST) Culture, Bacterial ID and Sensitivity Mixed urogenital harris, no uropathogens present. Suggest repeat specimen, if clinically indicated. 08/18/2024 9:[address] [facility] Other Urine specimen from urethra / Unknown 08/16/2024 08/17/2024 10:30 AM EST Stanley Drake MD LAB MICROBIOLOGY - G ENERAL ORDERABLES Final Result [facility] [address] [place] [address], documented in this encounter Visit Diagnoses Diagnosis Dysuria documented in this encounter Care Teams Composition Weatherboard Installer Relationship Specialty Start Date End Date Hanh Moran MD PCP - General Internal Medicine 09/08/19 documented as of this encounter
--- OUTSIDE RECORDS SUMMARY | 2024-12-24 08:38 | XMS_ITS | Clinical Summary ---
Author Organization [facility] Address [address] [place] [address] Care Team Providers Care Data Steward Name Role Phone Jhoan Pederson MD Primary Care Provider Jhoan Pennington MD Unavailable Unavailable Allergies Active Allergy Reactions Criticality Noted Date Comments Sulfa Antibiotics 09/16/2017 Sulfamethoxazole W-Trimethoprim 08/20 Medications Quinapril HCl (ACCUPRIL) 20 MG tablet 0 09/16/2017 Active amLODIPine Besylate (NORVASC) 10 MG tablet 0 09/16/2017 Active Norethindrone Acet-Ethinyl Est (Junel ) 1.5-30 MG-MCG Tab 0 09/16/2017 Active Nitrofurantoin Monohyd Macro (MACROBID) 100 MG capsule TAKE 1 CAPSULE TWICE DAILY WITH MEALS. 14 0 09/16/2017 Active Active Problems Problem Noted Date Diagnosed Date UTI symptoms 09/16/2017 UTI symptoms 09/16/2017 Social History Tobacco Use Types Packs/Day Years Used Date Smoking Tobacco: Never Assessed Comments Unknown Sex and Gender Information Value Date Recorded Sex Assigned at Not on file Legal Sex Female 2:31 PM EDT Gender Identity Not on file Sexual Orientation Not on file Last Filed Vital Signs Vital Sign Reading Time Taken Comments Blood Pressure 110/76 09/16/2017 10:13 AM EST Pulse 75 09/16/2017 10:13 AM EST Temperature 36.8 ??C (98.2 ??F) 09/16/2017 1 0:13 AM EST Respiratory Rate 16 09/16/2017 10:1 3 AM EST Oxygen Saturation 98% 09/16/2017 10: 13 AM EST Inhaled Oxygen Concentration - - Weight 70.2 kg (154 lb 12.9 oz) 018 10:13 AM EST Height - - Body Mass Index - - Plan of Treatment Health Maintenance Due Date Last Done Comments Hepatitis C Screening 1989 Pap Smear 2005 DTaP/Tdap/Td (1 - Tdap) 12/11/2007 Hep B (1 of 3 - 19+ 3-dose series) 2008 COVID-19 Vaccine ( - 2023-2 5 season) 2024 Influenza (#1) 2024 Zoster (Shingrix) (1 of 2) 12/11/2039 HPV Vaccine Aged Out No longer eligi ble based on patient's age to complete this topic Hep A Aged Out No longer eligi ble based on patient's age to complete this topic Hib Aged Out No longer eligi ble based on patient's age to complete this topic Meningococcal ACWY Aged Out No longer eligible based on patient's age to complete this topic Pneumococcal Aged Out No longer eligi ble based on patient's age to complete this topic Care Teams Data Steward Relationship Specialty Start Date End Date Jhoan Pederson MD PCP - General 03/24/23 Jhoan Pederson MD PCP - Backup PCP Family Medicine 09/17/23
--- OUTSIDE RECORDS SUMMARY | 2024-12-24 08:38 | XMS_ITS | Encounter Summary ---
Author Organization [facility] Address [address] [place] [address] Care Team Providers Care Economist Research Assistant Name Role Phone Hanh Moran MD Primary Care Provider Unavaila ble Reason for Visit * Reason Comments E-prescribe Rx Request Encounter Details Date Type Department Care Team Description 10/28/2021 Refill OBGYN - [place] [address] [place] [address] Danilo Cervantes MD [address] [place], [place] [id number] E-prescribe Rx Request Social History Tobacco Use Types Packs/Day Years [...] Exposure Response Date Recorded In the last month, have you been in contact with someone who was confirmed or suspected to have Coronavirus / COVID-19? No / Unsure 10/16/2021 8:55 AM EST documented as of this encounter Miscellaneous Notes * Telephone Encounter - Ruthann Echeverria - 10/29/2021 11:26 AM EDT WHEN WAS THE PATIENTS LAST ANNUAL LICENSED AUDIOLOGIST EXAM? 2/18/22 IP Does patient have an upcoming appointment? Yes 11/01/21 (THE MEDICATION REQUESTED IS ON THE MED LIST ABOVE) Did you check the Pharmacy information above?: YES Indicate how soon the patient needs the script: BY THE END OF THE DAY Patient would like script to be: E-PRESCRIBED/FAXED TO PHARMACY Is the doctor here today?: NO Can the message wait until the doctor returns?: NO Has the patient been told that the prescription will not be filled until the end of the day? NO Payor: [facility] [employer] / Plan: [facility] / Product Type: MEDICAID RISK documented in this encounter Plan of Treatment Not on file documented as of this encounter Visit Diagnoses Not on filedocumented in this encounter Care Teams Economist Research Assistant Relationship Specialty Start Date End Date Hanh Moran MD PCP - General Internal Medicine 09/08/19 documented as of this encounter
--- OUTSIDE RECORDS SUMMARY | 2024-12-24 08:38 | XMS_ITS | Encounter Summary ---
Author Organization [facility] Address [address] [place] [address] Care Team Providers Care Telephone Lines Repairer Name Role Phone Wilfrid Razo DO Primary Care Provider [phone] Abbey Rubin [facility] Unavailable [phone] Janey Rodarte MD Primary Care Provider [phone] Encounter Details Date Type Department Care Team (Late st Contact Info) Description 07/17/2017 Scanned Document [facility] [address] [address] Wilfrid Razo DO [address] [place] [address] Social History Tobacco Use Types Packs/Day Years [...] on filedocumented in this encounter Care Teams Telephone Lines Repairer Relationship Specialty Start Date End Date Wilfrid Razo DO PCP - General Internal Medicine 07/08/16 02/11/19 Janey Rodarte MD [address] [facility] [place] [facility] [address] PCP - General Internal Medicine 02/12/19 09/30/21 Abbey Rubin, [facility] [address] [address] [facility] Community Structural Steel Erector 06/29/1807/10 documented as of this encounter
--- OUTSIDE RECORDS SUMMARY | 2024-12-24 08:38 | XMS_ITS | Encounter Summary ---
Author Organization [facility] Address [address] [place] [address] Care Team Providers Care Engine Lathe Tender Name Role Phone Hanh Moran MD Primary Care Provider Emily oquendo Encounter Details Date Type Department Care Team Description 05/21/2022 Orders Only OBGYN - [place] [address] [place] [address] Miriam Hong MD [address] [place] [address] Social History Tobacco Use Types Packs/Day Years [...] suspected to have Coronavirus/COVID-19? No / Unsure 05/06/2022 12:48 PM EDT documented as of this encounter Plan of Treatment Not on file documented as of this encounter Visit Diagnoses Not on filedocumented in this encounter Care Teams Engine Lathe Tender Relationship Specialty Start Date End Date Hanh Moran MD PCP - General Internal Medicine 09/08/19 documented as of this encounter
--- OUTSIDE RECORDS SUMMARY | 2024-12-24 08:38 | XMS_ITS | Encounter Summary ---
Author Organization [facility] Address [address] [place] [address] Care Team Providers Care Fruit Harvester Name Role Phone [facility], Pcp Primary Care Provider Abbey Peraza MD Primary Care Provider Hanh Nobles MD Primary Care Provider Unavailhoang ble Reason for Visit * Reason Onset Date Comments Form 07/23/2019 Encounter Details Date Type Department Care Team Description 07/23/2019 Telephone OBGYN - [place] [address] [place] [address] Danilo Cervantes MD [address] [place] [address] Form Social History Tobacco Use Types Packs/Day Years [...] encounter Miscellaneous Notes * Telephone Encounter - Natalie Head M.A. - 07/23/2019 9:24 AM EST Pt picking up Wic form at her next appt in August. Form placed in pt garbage pick up worker bin at the front.-AC documented in this encounter Plan of Treatment Not on file documented as of this encounter Visit Diagnoses Not on filedocumented in this encounter Care Teams Fruit Harvester Relationship Specialty Start Date End Date Community, Pcp PCP - General Internal Medicine 05/31/19 08/15/19 Abbey Donald MD PCP - General Internal Medicine 08/16/19 09/07/19 Hanh Moran MD PCP - General Internal Medicine 09/08/19 documented as of this encounter
--- OUTSIDE RECORDS SUMMARY | 2024-12-24 08:38 | XMS_ITS | Encounter Summary ---
Author Organization [facility] Address [address] [place] [address] Care Team Providers Care Transport Coordinator Name Role Phone Hanh Moran MD Primary Care Provider Emily oquendo Encounter Details Date Type Department Care Team Description 12/11/2021 Orders [place] [address] Danilo Cervantes MD [address] [place] [address] Echogenic focus of heart of fetus affecting antepartum care of mother, single or unspecified fetus (Primary Dx) Social History Tobacco Use Types Packs/Day Years [...] suspected to have Coronavirus/COVID-19? No / Unsure 2021 8:00 AM EDT documented as of this encounter Plan of Treatment Not on file documented as of this encounter Results * PANORAMA (12/17/2021 4:53 PM EDT) PANORAMA SEE SEPARATE REPORT 12/17/2021 4:55 PM EDT [facility] Comment: Specimen sent to Reference Lab. ??See report sent under separate cover 12/17/2021 4:53 PM EDT 12/17/2021 4:54 PM EDT Narrative [facility] - 12/17/2021 4:55 PM EDT Release to patient->Immediate Danilo Cervantes MD LAB [facility] [employer] documented in this encounter Visit Diagnoses Diagnosis Echogenic focus of heart of fetus affecting antepartum care of mother, single or unspecified fetus- Primary Echogenic focus of heart of fetus affecting antepartum care of mother, single or unspecified fetus documented in this encounter Care Teams Transport Coordinator Relationship Specialty Start Date End Date Hanh Moran MD PCP - General Internal Medicine 09/08/19 documented as of this encounter
--- OUTSIDE RECORDS SUMMARY | 2024-12-24 08:38 | XMS_ITS | Clinical Summary ---
Author Organization [address] Address [address] [place] [phone] Phone Care Team Providers Care Manager Call Name Role Phone Hanh Moran MD Primary Care Provider [phone] Encounters Date Type Department Care Team Description 2024 Lab Requisition [facility] [address] [place] [phone] Stanley Drake MD Dysuria 11/26/2024 Lab Requisition [facility] [address] [place] [phone] Stanley Drake MD Urinary tract infection, site not specified from Last 3 Months Surgical History Surgery Date Site/Laterality Comments APPENDECTOMY 2006 PROCEDURE: NE APPENDEC INDICATED PURPOSE OTH MAJOR PX NOT SPX; COMMENT: Malrotation of large intestine also repaired. TONSILLECTOMY 2000 PROCEDURE: HISTORICAL TONSILLECTOMY WISDOM TOOTH EXTRACTION PROCEDURE: HISTORICAL WISDOM TEETH EXTRACTION; COMMENT: all 4 removed years ago. 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 Asthma 2000 DX:Asthma Family History Medical History Relation Name Comments Uterine cancer Aunt maternal aunt No Known Problems Brother 1 maternal h nakul brother Diabetes Brother 2 paternal half b rother Other: paternal 1/2 brother Brother 2 No Known Problems Father Brain cancer Maternal Grandfather Lung cancer Maternal Grandmother Stroke Mother first at age 37 , TIA at 38 yrs old and 2nd stroke at 46 Alzheimer's disease Paternal Grandmother No Known Problems Sister maternal h nakul sister Breast cancer Neg Hx Cervical cancer Neg Hx Ovarian cancer Neg Hx Relation Name Status Comments Aunt maternal aunt Alive Brother 1 Alive Brother 2 Alive Father Alive Maternal Grandfather Maternal Grandmother Mother Alive Paternal Grandfather Paternal Grandmother Sister Alive Social History Tobacco Use Types Packs/Day [...] on file Sexual Orientation Not on file Obstetrics History Last Filed Vital Signs Vital Sign Reading Time Taken Comments Blood Pressure 142/85 05/28/2022 9:34 AM EDT Pulse 59 05/28/2022 9:34 AM EDT Temperature - - Respiratory Rate - - Oxygen Saturation - - Inhaled Oxygen Concentration - - Weight 63 kg (139 lb) 05/28/2022 9:34 AM EDT Height - - Body Mass Index - - Plan of Treatment Health Maintenance Due Date Last Done Comments Pneumococcal Vaccine: Pediatrics (0 to 5 Years) and At-Risk Patients (6 to 64 Years) (1 of 2 - PCV) 2008 Cholesterol Screening (Lipid Panel) 07/27/2022 Depression Screening 07/27/2022 HIV Screening 07/27/2022 Social Influencers of Health Screening 07/27/2022 Hypertension/CHF/CAD Annual BMP Blood Test 07/28/2022 COVID-19 Vaccine ( - 2023-2 5 season) 2024 Cervical Cancer Screening: P ap Smear 10/05/2024 10/05/2021, 07/21/2019 Influenza Vaccine (Season Ended) 2025 06/23/2019 DTaP,Tdap,and Td Vaccines (4 - Td or Tdap) 01/25/2032 01/24/2022, 12/02/2019, 08/10/2014 Hepatitis B Vaccines Completed 04/12/2015, 10/06/2014, 08/24/2014 Hepatitis C Screening Completed 12/19/2017 HIB Vaccines Aged Out No longer eligi ble based on patient's age to complete this topic HPV Vaccines Aged Out No longer eligi ble based on patient's age to complete this topic Hepatitis A Vaccines Aged Out No long er eligible based on patient's age to complete this topic IPV Vaccines Aged Out No longer eligi ble based on patient's age to complete this topic MMR Vaccines Aged Out No longer eligi ble based on patient's age to complete this topic Meningococcal ACWY Vaccine Aged Out N o longer eligible based on patient's age to complete this topic Meningococcal B Vaccine Aged Out No l onger eligible based on patient's age to complete this topic RSV Immunization Patients Under 20 months Aged Out No longer eligible b ased on patient's age to complete this topic Varicella Vaccines Aged Out No longer eligible based on patient's age to complete this topic Procedures Procedure Name Priority Date/Time Associated Diagnosis Comments CULTURE URINE Routine 2024 12:00 AM EDT Dysuria CULTURE URINE Routine 11/26/2024 2:08 PM EDT Urinary tract infection, site not specified PAP SMEAR Routine 10/05/2021 from Last 3 Months or Most Recently Relevant to Health Maintenance Results * Culture urine (2024 12:00 AM EDT) Only the most recent of2 resultswithin the time period is included. Culture, Urine 10,000-49,000 CFU/mL Mixed urogenital harris, no uropathogens present. Suggest repeat specimen if clinically indicated. 12/11/2024 10:22 AM EDT [facility] Urine Urine specimen from urethra / Unknown 2024 2024 1:10 PM EDT us Stanley Drake MD LAB MICROBIOLOGY - G ENERAL ORDERABLES Final Result [facility] [address] [place] [address], [place] [phone] * Pap smear (10/05/2021) 10/05/2021 Narrative HISTORICAL TESTING LAB RESULTING AGENCY - 10/22/2021 7:26 AM EST [id number] THINPREP PAP, IMAGED: NEGATIVE FOR SQUAMOUS INTRAEPITHELIAL LESION AND MALIGNANCY . NOTE: THE PAP TEST IS A SCREENING TEST WITH AN INHERENT FALSE NEGATIVE RATE. AUTOMATED PRESCREENING OF ALL LIQUID BASED SPECIMENS IS PERFORMED BY THE THINPREP IMAGING SYSTEM UNLESS OTHERWISE STATED. KWAME REZA(ASCP) (CASE ELECTRONICALLY SIGNED 10 20 2021) RESULT OF APTIMA HIGH RISK HPV ASSAY: HIGH RISK HPV: ??NEGATIVE (SEROTYPES 16,18,31,33,35,39,45,51,52,56,58,59,66,68) COMPLETED ON 2021-10-10 ADEQUACY: SATISFACTORY ENDOCERVICAL/TRANSFORMATION ZONE COMPONENT PRESENT. SOURCE: THINPREP PAP HPV ANY DX: ??REFLEX 16 AND 18, CERVICAL, IMAGED CLINICAL INFORMATION: HPV ANY DIAGNOSIS. HORMONES, PAP HX NEGATIVE, 2018, LMP 07/18/21, Z12.4 us Danilo Cervantes MD LAB CYTOLOGY ORDERABLES Final Result HISTORICAL TESTING LAB RESULTING AGENCY from Last 3 Months or Most Recently Relevant to Health Maintenance Insurance [facility] [facility] Care Teams Manager Call Relationship Specialty Start Date End Date Hanh Moran MD PCP - General Internal Medicine 09/08/19
--- OUTSIDE RECORDS SUMMARY | 2024-12-24 08:38 | XMS_ITS | Encounter Summary ---
Author Organization [facility] Address [address] [place] [address] Care Team Providers Care Strategic Development Manager Name Role Phone Hanh Moran MD Primary Care Provider Emily oquendo Encounter Details Date Type Department Care Team Description 10/16/2021 Orders Only Ultrasound - [address] [address] Miriam Hong MD [address] [place] [address] [place] [id number] First trimester screening (Primary Dx) Social History Tobacco Use Types [...] AM EST documented as of this encounter Plan of Treatment Not on file documented as of this encounter Results * FIRST SCREEN (10/16/2021 9:26 AM EST) Pathologist [facility] FIRST SCREEN SCREEN NEGATIVE 10/20/2021 8:25 AM EST [facility] 10/16/2021 9:26 AM EST 10/16/2021 9:27 AM EST Narrative [facility] - 10/20/2021 8:25 AM EST Release to patient->Immediate Miriam Hong MD LAB [facility] documented in this encounter Visit Diagnoses Diagnosis First trimester screening- Primary Other specified screening Chronic hypertension documented in this encounter Care Teams Strategic Development Manager Relationship Specialty Start Date End Date Hanh Moran MD PCP - General Internal Medicine 09/08/19 documented as of this encounter
--- OUTSIDE RECORDS SUMMARY | 2024-12-24 08:38 | XMS_ITS | Encounter Summary ---
Author Organization [facility] Address [address] [place] [address] Care Team Providers Care Dynamic Balancer Name Role Phone Hanh Moran MD Primary Care Provider Emily oquendo Encounter Details Date Type Department Care Team Description 10/07/2019 Orders Only Radiology - [address] [address] Hanh Moran MD Social History Tobacco Use Types Packs/Day Years [...] on filedocumented in this encounter Care Teams Dynamic Balancer Relationship Specialty Start Date End Date Hanh Moran MD PCP - General Internal Medicine 09/08/19 documented as of this encounter
--- OUTSIDE RECORDS SUMMARY | 2024-12-24 08:38 | XMS_ITS | Clinical Summary ---
Author Organization [facility] Address [address] [place] [address] Care Team Providers Care Elevator Troubleshooter Name Role Phone Unavailable Primary Care Provider Unavailabl e Allergies Active Allergy Reactions Criticality Noted Date Comments Sulfamethoxazole-Trimethoprim Hives Medium 2016 Seasonal 12/02/2016 Medications Medication Sig Dispensed Refills Start Date End Date Status QUINAPRIL HCL PO Take by mouth. 0 Acti ve AMLODIPINE BESYLATE PO Take by mouth. 0 Active Norethin Junior-Eth Estrad-FE ( PO) Take by mouth. 0 Active Probiotic Product (PROBIOTIC DAILY PO) Take by mouth. 0 Active Family History Medical History Relation Name Comments Brain cancer Maternal Grandfather Gout Maternal Grandfather Lung cancer Maternal Grandmother Anemia Mother Stroke Mother Breast cancer Neg Hx Nephrolithiasis Neg Hx Prostate cancer Neg Hx Relation Name Status Comments Maternal Grandfather Maternal Grandmother Mother Social History Tobacco Use Types Packs/Day Years Used Date Smoking Tobacco: Never Sex and Gender Information Value Date Recorded Sex Assigned at Not on file Gender Identity Not on file Sexual Orientation Not on file Job Start Date Occupation Industry Not on file Not on file Not on file Last Filed Vital Signs Vital Sign Reading Time Taken Comments Blood Pressure 128/87 12/02/2016 10:42 AM EDT Pulse 80 12/02/2016 10:42 AM EDT Temperature - - Respiratory Rate - - Oxygen Saturation - - Inhaled Oxygen Concentration - - Weight 74.4 kg (164 lb) 12/02/2016 10:42 AM EDT Height 157.5 cm (5' 2 ) 12/02/2016 10:42 AM EDT Body Mass Index 30 12/02/2016 10:42 AM EDT Plan of Treatment Health Maintenance Due Date Last Done Comments Hepatitis C Screening 1989 COVID-19 Vaccine (#1) 06/11/1990 Depression Screening 2001 Preventative Health Evaluation 12/11/2007 Cervical Cancer Screening (Pap Smear) 2010 Influenza Vaccine (#1) 2024 DTap / Tdap / Td (2 - Td or Tdap) 08/10/2024 08/10/2014 Hepatitis B Vaccines Completed 04/12/2015, 10/06/2014, 08/24/2014 Pneumococcal Vaccine Aged Out No long er eligible based on patient's age to complete this topic RSV Ped < 20 months Aged Out No longe r eligible based on patient's age to complete this topic
--- OUTSIDE RECORDS SUMMARY | 2024-12-24 08:38 | XMS_ITS | Encounter Summary ---
Author Organization [facility] Address [address] [place] [address] Care Team Providers Care Room Service Waiter Name Role Phone Hanh Moran MD Primary Care Provider [phone] Encounter Details Date Type Department Care Team (Late st Contact Info) Description 11/26/2024 Lab Requisition [facility] [address] [place] [phone] Stanley Drake MD [address] [facility] [address] [place] [address] Urinary tract infection, site not specified Social History Tobacco Use Types Packs/Day Years [...] Date/Time Associated Diagnosis Comments CULTURE URINE Routine 11/26/2024 2:08 PM EDT Urinary tract infection, site not specified documented in this encounter Results * Culture urine (11/26/2024 2:08 PM EDT) Culture, Urine 50,000-99,000 CFU/mL Mixed urogenital harris, no uropathogens present. Suggest repeat specimen if clinically indicated. 11/27/2024 12:54 PM EDT [facility] Urine Urine specimen obtained by clean catch procedure / Unknown 11/26/2024 2:08 PM EDT 11/26/2024 5:54 PM EDT us Stanley Drake MD LAB MICROBIOLOGY - G ENERAL ORDERABLES Final Result [facility] [address] [place] [address], documented in this encounter Visit Diagnoses Diagnosis Urinary tract infection, site not specified documented in this encounter Care Teams Room Service Waiter Relationship Specialty Start Date End Date Hanh Moran MD PCP - General Internal Medicine 09/08/19 documented as of this encounter
--- OUTSIDE RECORDS SUMMARY | 2024-12-24 08:38 | XMS_ITS | Clinical Summary ---
Author Organization [facility] Address [address] [place] [address] Care Team Providers Care Ticket Marker Name Role Phone Hanh Moran MD Primary Care Provider Unavaila ble Allergies Active Allergy Reactions Severity Noted Date Comments Septra I.V. Hives/Urticaria Medium 06/07/2019 Seasonal Allergies Low 07/12/2019 Medications Medication Sig Dispensed Refills Start Date End Date Status Vit-Fe Fumarate-FA ( Plus) 27-1 MG Tab Take 1 tablet by mouth daily. 30 tablet 11 08/28/2021 Active Ascorbic Acid (Vitamin C) 500 MG Chew Tab Take 1 Each by mouth daily. Take 1 daily 0 Active pyridoxine (B-6) 25 MG tablet Take 1 tablet by mouth 3 times daily as needed (N/V) for up to 360 days. 90 tablet 1 10/05/2021 Active famotidine (Pepcid) 20 MG tablet Take 1 Tablet by mouth 2 times daily. 60 Tablet 5 12/27/2021 Active ibuprofen (ADVIL,MOTRIN) 800 MG tablet Take 1 Tablet by mouth every 8 hours as needed for Pain for up to 30 days. 60 Tablet 1 04/20/2022 Active amlodipine (NORVASC) 10 MG tablet Take 1 Tablet by mouth daily. 30 Tablet 0 05/21/2022 Active norethindrone (Anisa) 0.35 MG tablet Take 1 Tablet by mouth daily for 360 days. 28 Tablet 3 05/28/2022 Active Active Problems Problem Noted Date Chronic hypertension 06/07/2019 Overview: Baseline (<20 weeks) HELLP labs and P/C ratio - 0 Start ASA 162 mg at 12 weeks until delivery for pre-eclampsia prevention Level 2 anatomy US Q 4 week growth US starting at 24 weeks Weekly NST, BP and protein check at 32 weeks Twice weekly testing at 36 weeks Start meds for SBP> 140 or DBP> 90 Deliver 38-39 weeks on no meds Deliver 37-39 weeks on meds On amlodipine and quinopril prior to first pregn, then on labetalol in first , after delivered, no further issues and PCP took her off meds Last Assessment & Plan: Continues her daily ASA. She will start on nifedipine 30 XL for now and will make a follow up appt with her PCP in the next 1-2 weeks. She will follow up with us for BP check in one week. Also has a cuff at home and will check once in a while to ensure not too low. No pre-eclampsia labs today given mild range and asymptomatic. Unlikely to change management director. She was counseled re: signs and sx for which to present for evaluation. Resolved Problems Problem Noted Date Resolved Date affected by growth restriction 0 02/09/2022 05/28/2022 Overview: 03/05/22 - EFW 16%ile, no longer considered FGR, increased surveillance no longer indicated NEW DEFINITION: FGR = AC<10%ile or EFW <10%ile Urgent consult to [facility] at diagnosis - ordered Genetic counseling/testing if not previously done - FIRST SCREEN NEGATIVE Level 2 US if < 35 weeks Growth US Q 3-4 weeks Twice weekly testing- one NST and one BPP with VANESSA, Dopplers Transfer if severe FGR (<1800 g at delivery) Deliver at FLC 38-39 6/7 weeks if isolated without comorbidity Transfer to [facility] with plan for early delivery for: ? ? Abnormal Doppler (> 95%, or absent or reverse end-diastolic flow) ? ? EFW < 2500 gm (or based on peds cutoff) ? ? Gestational age < 37 weeks (or based on your peds cutoff). ? ? Oligohydramnios if prompt delivery cannot be achieved while in labor. ? ? anomalies ? ? Severe polyhydramnios (due to resuscitation needs) ? ? Any clinical scenario where constitutional etiology is clearly not suspected (very big parents or prior large babies, but IUGR with this ). *M will help with delivery planning if abnormal Dopplers Last Assessment & Plan: Most recent growth US 16%ile, no longer considered FGR, therefore increased surveillance no longer indicated. This was discussed with the patient today. All questions answered. Heartburn 12/27/2021 05/28/2022 Last Assessment & Plan: Continue Pepcid cardiac echogenic focus, antepartum 202105/28/2022 Overview: Normal first trimester and AFP, other than the echogenic foci a normal anatomy scan and limited heart views. --follow up views in 4 weeks --> wnl at 25w1d on 01/10/2022 --Patient desires genetic screening, order placed ---Low risk Panorama 12/17/2021 Supervision of high-risk 09/26/2021 05/28/2022 Overview: 1. [facility] site: [place] 2. Delivery site: [facility] 3. Mobile Mommas: NO 4. Dating criteria: LMP only 5. Blood type: A+ 6. Genetic screeninst trimester Date: 10/16/21 Result: Neg, AFP 11/13/2021 negative 6. GBS: Date: 03/25 Negative 7. FOB name: Nando Kaba 8. Plans A. Epidural or other pain management - Epidural B. Labor support identified - Nando Guillaume Tdap - Date: 01/24/22, Flu - Date: 06/01/2021 D. Breast or Bottle feed: breast E. Baby's name - F. Circumcision - 9. Hospital Course: COVID-19 affecting in first trimester 09/26/2021 05/28/2022 Overview: +home and PCR COVID test on 09/17/21. Instructed should start low dose apirin at 12wks; can discuss with provider on IP. Last Assessment & Plan: Continue ASA daily. Growth coming up in 2 weeks Dysuria during in first trimester 04/202212/27/2021 Overview: labs ordered today along with urine culture; patient to have labs done today; 09/26/21 History of IUGR in previous 12/31/2019 05/28/2022 Overview: Previous IMO DX update 2021 High-risk 11/05/2019 11/29/2021 Overview: Growth scans On 11/04/2019 at 27 weeks and 6 days estimated weight 990 g or 2 pounds 3 ounces at 29 percentile Adequate growth and normal fluid Repeat growth between 32 and 34 weeks Supervision of normal first 07/12/2019 02/29/2020 Overview: 09/05/2019 s/p fall associated with vaginal bleeding FWBR 1. [facility] site: [address] 2. Delivery site: [facility] 3. Dating criteria: LMP only 3. Blood type: Unknown 4. Genetic screening: First screen: negative, AFP: 08/27/2019 Screened negative 5. GBS: Date: Treat in labor UTI initial visit 6. FOB name: Nando Kaba 7. Plans A. Epidural or other pain management -epidural B. Labor support identified - Nando Guillaume Tdap - Date: 12/02/2019 D. Breast or Bottle feed: breast E. Baby's name - Elsa Preciado Circumcision - N/A 11. Hospital Course: 29yo female nl pp day 2 s/p , uncomplicated, breast feeding only hx of chronic htn O: ff 1fb below u srl neg homans +pedal pulses vss A: 29yo female nl pp day 2 with hx of chronic htn P; reviewed pp and d/c instructions 2. d/c home today 3. rto in 1wks for bp check followed by 4wks for pp f/u Zika assessment screening: negative GBS (group B streptococcus) UTI complicating pre gnancy 06/09/2019 10/05/2021 Overview: Treat in labor Immunizations Name Administration Dates Next Due Influenza Flu (PT Reported) 06/11/2021 Influenza Vaccine-quadrivalent 4 Years Plus 01/2019 Fajagnn-Ebiwq-Kfkkwqqr + 07/12/2019 Tdap 01/24/2022,12/02/2019 Varicella Titre-Positive + 07/12/2019 Family History Medical History Relation Name Comments Uterine Cancer Aunt maternal aunt No Known Problems Brother 1 maternal h nakul brother Diabetes Brother 2 paternal half b rother paternal 1/2 brother Brother 2 No Known Problems Father Brain Cancer Maternal Grandfather Cancer of the Lung Maternal Grandmother Stroke Mother first at age 37 , TIA at 38 yrs old and 2nd stroke at 46 Alzheimers Disease Paternal Grandmother No Known Problems Sister maternal h assisted sister CA Breast Negative Hx CA Ovarian Negative Hx Cervical Cancer Negative Hx Relation Name Status Comments Aunt maternal [...] AM EDT Temperature - - Respiratory Rate 16 04/09/2022 1:27 PM EDT Oxygen Saturation - - Inhaled Oxygen Concentration - - Weight 63 kg (139 lb) 05/28/2022 9:34 AM EDT Height 157.5 cm (5' 2 ) 06/22/2021 3:10 PM EDT Body Mass Index 25.42 06/22/2021 3:10 PM EDT Plan of Treatment Health Maintenance Due Date Last Done Comments Covid-19 Vaccine (#1) 06/11/1990 BASELINE HEALTH EXAM 18-39 2008 CHOLESTEROL SCREENING 2009 BMI CHECK/ADVISE 08/18/2024 05/28/2022, 12/2020, 06/22/2021 (Completed) DEPRESSION SCREENING/FOLLOWUP 08/18/2024 SOCIAL NEEDS SCREENING 08/18/2024 CERVICAL CANCER SCREENING 10/05/2024 10/05/2021, 11/2018 INFLUENZA (Season Ended) 2025 06/11/2021, 01/2019 DTAP/TDAP/TD (3 - Td or Tdap) 01/25/2032 01/24/2022, 12/02/2019 PNEUMOCOCCAL VACCINE FOR HIG H RISK PATIENTS (#1) 2054 Care Teams Ticket Marker Relationship Specialty Start Date End Date Hanh Moran MD PCP - General Internal Medicine 09/08/19
== END 2024-12-24 09:12 | disposition left against medical advice (07) ==
PROVIDERS: PCP Internal Medicine
DX: Z13.9 Encounter for screening, unspecified (principal)

== ENCOUNTER → 2024-12-24 08:26 | Outpatient (BNVA) | payer OTHER, SELFPAY | PROVIDERS: PCP Internal Medicine | DX: J02.9 Acute pharyngitis, unspecified (principal) | CPT/HCPCS: 81003; 87880 ==

== ENCOUNTER 2025-03-10 10:40 | Outpatient (AMB) | payer OTHER, SELFPAY ==
--- NOTE | 2025-03-10 10:42 | MHC.PC.OV ---
Vital Signs 03/10/25 10:43 Height 5 ft 2 in Weight 153 lb BMI 28.0 BP 130/84 Blood Pressure Location Lt brachial Position Sitting Respiration 18 Pulse 78 Pulse Source Pulse Oximeter Temp 99.1 F Temp Source Oral Pulse Oximetry (%) 98 Oxygen Delivery Method Room Air Intake Visit Reasons: BP high Intake Note: Pt is here today for a sick visit. Pt c/o elevated BP and headaches. Allergies Sulfa (Sulfonamide Antibiotics) Allergy (Unknown, Verified 03/10/25 10:43) unknown sulfamethoxazole (From Bactrim) Allergy (Unknown, Verified 03/10/25 10:43) unknown trimethoprim (From Bactrim) Allergy (Unknown, Verified 03/10/25 10:43) unknown Medication List - Last Reconciled 03/10/25 by Hanh Moran MD amlodipine 5 mg PO DAILY multivitamin 1 tab PO DAILY Ventolin HFA 90 mcg/actuation (albuterol sulfate) 2 puffs inhalation Q6-8H 30 days NS Tobacco use date assessed: 03/10/25 Dental Screening Dental Screen Date: 08/20/24 HPI BP high HPI Details Pt presents for f/u. Pt had a KEANE yesterday and feeling fuzzy . Pt took Exedrin and noticed elevated BP. Patient has been monitor her blood pressure and noticed higher readings lately up to 140/90. Pt got engaged and planning a wedding. She has been under lot of stress related to her 3 old son having difficulties walking. [facility] Medical History Migraine Giron palsy HTN (hypertension) Surgical History History of surgery Family History Father No problems noted. Mother History of CVA (cerebrovascular accident) Mental health disorder HTN (hypertension) Social History Household Members Other:: , 2 children (4 and 2), works as hotel or motel receptionist [employer] Housing: House Patient Tobacco Use Status: Never used Tobacco e-Cigarette/Vaping Use: Never Used service: No Current occupational status: employed Cognitive needs: No Hearing needs: No Vision needs: Yes Questionnaire Thrive Questionnaire Date Thrive assessed: 08/19/24 I am a: Patient What is your living situation today?: I have a steady place to live Within the past 12 months, did the food you bought not last and you didn't have the money to get more?: Never true Within the past 12 months, did you worry whether your food would run out before you got money to buy more?: Never true Do you have trouble paying for medicines?: No Do you have trouble getting transportation to medical appointments?: No Do you have trouble paying your heating and electricity bill?: No Do you have trouble taking care of your child, family member or friend?: No Do you have trouble with day-to-day activities such as bathing, preparing meals, shopping, managing finances, etc.?: No Are you currently unemployed and looking for a job?: No Are you interested in more education?: Yes Please select the resources that you would like help with: None Currently or been in a relationship where the following occur: No concerns reported THRIVE Score: 0 RAMAN-7 AMB Questionnaire RAMAN-7 Date RAMAN - 7 assessed: 08/20/24 Source: Developed by Drs. Erasmo Rachel, Isabel Bennett, Lauro Ramírez and colleagues, with an educational venus from [employer] Review of Systems Const All systems reviewed & are unremarkable except as noted in HPI and below Reports no additional complaints Eyes Reports no additional complaints ENT Reports no additional complaints Card Reports no additional complaints Resp Reports no additional complaints GI Reports no additional complaints Physical exam (Primary Care) Vital Signs: Last Vital Signs Temp 99.1 F 03/10/25 10:43 Pulse 78 03/10/25 10:43 Resp 18 03/10/25 10:43 BP 130/84 03/10/25 10:43 Pulse Ox 98 03/10/25 10:43 Oxygen Delivery Method Room Air 03/10/25 10:43 BMI result Body Mass Index 28.0 Tobacco/Smoking Status: Tobacco use Status Tobacco use date assessed 03/10/25 03/10/25 10:50 Patient Tobacco Use Status Never used Tobacco 03/10/25 10:43 e-Cigarette/Vaping Use Never Used 03/10/25 10:43 Thrive Assessment: Date of Thrive Assessment Date Thrive assessed 08/19/24 03/10/25 10:43 Currently or been in a relationship where the following occur: No concerns reported Const General: no acute distress HENMT Head: Yes normal to inspection General nose exam: Normal external nose present Eyes General: appearance normal, both eyes and all related structures Resp Effort & Inspection: normal respiratory effort Auscultation: clear to auscultation bilaterally Cardio Rhythm: regular rhythm Heart sounds: S1 normal heart sound present and S2 normal heart sound present Coding Level of Care Code Est Pt Level 3 (28896) Diagnoses HTN (hypertension) I10 Assessment & Plan Assessment & Plan (1) HTN (hypertension): Code(s): I10 - Essential (primary) hypertension Category: Medical Plan: Increase amlodipine to 5 mg twice a day, low-sodium diet regular physical activity weight loss discussed with the patient, she will follow-up in 2 months Orders: Orders Comprehensive Bowman. Panel Fast 2 Months I10 - Essential (primary) hypertension, Z00.00 - Encounter for general adult medical examination without abnormal findings Complete Blood Count Auto Diff 2 Months I10 - Essential (primary) hypertension, Z00.00 - Encounter for general adult medical examination without abnormal findings UA w Microscopic 2 Months I10 - Essential (primary) hypertension, Z00.00 - Encounter for general adult medical examination without abnormal findings Lipid Panel 2 Months I10 - Essential (primary) hypertension, Z00.00 - Encounter for general adult medical examination without abnormal findings TSH reflex Free T4 2 Months I10 - Essential (primary) hypertension, Z00.00 - Encounter for general adult medical examination without abnormal findings Medications: Changed From amlodipine 5 mg PO DAILY 90 tabs 3RF To amlodipine 5 mg PO BID 180 tabs 3RF
[2025-03-10 10:43] VITALS: BP 130/84; PULSE 78; RESP 18; TEMP 37.3; O2SAT 98; BMI 28.0
--- OUTSIDE RECORDS SUMMARY | 2025-03-10 11:32 | XMS_ITS | Clinical Summary ---
Author Organization [facility] Address [address] [place] [address] Care Team Providers Care Consulting Manager Name Role Phone Jhoan Pederson MD Primary [...] 75 09/16/2017 10:13 AM EST Temperature 36.8 C (98.2 F) 09/16/2017 10:13 AM EST Respiratory Rate 16 09/16/2017 10:1 [...] - 2023-2 5 season) 2024 Influenza (#1) 2025 Zoster (Shingrix) (1 of 2) 12/11/2039 HPV [...] age to complete this topic Care Teams Consulting Manager Relationship Specialty Start Date End Date Jhoan Pederson MD PCP - General 03/24/23 Jhoan Pederson MD PCP - Backup PCP Family Medicine 09/17/23
--- OUTSIDE RECORDS SUMMARY | 2025-03-10 11:32 | XMS_ITS | Clinical Summary ---
Author Organization [facility] Address [address] [place] [address] Care Team Providers Care Probation Counselor Name Role Phone Unavailable Primary Care Provider [...] 57 12/23/2018 1:28 PM EDT Temperature 36.5 C (97.7 F) 12/23/2018 1:28 PM EDT Respiratory Rate 16 12/23/2018 1:28 PM EDT [...] Pap Smear (Ages 21-65) 2010 COVID-19 Vaccine ( - 2023-2 5 season) 2024 DTaP/Tdap/Td Vaccines [...] Reflex to Confirmation (12/19/2017 4:27 PM EDT) Pathologist [facility] HIV 1/2 Ag/Ab CMIA Nonreactive Nonreactive HOSPITAL LAB Comment: Results show no evidence of infection by HIV 1/2. If clinically indicated, repeat CMIA or test by nucleic acid amplification. Performed at [facility], [place], [place] License 0385 CLIA [id number] Blood specimen (specimen) Blood specimen / Unknown 12/19/2017 4:27 PM EDT 12/19/2017 6:25 PM EDT us Patria HINOJOSA LAB BLOOD ORDERABLES Final Resu lt HOSPITAL LAB * Hepatitis C Virus (HCV) Antibody (12/19/2017 4:27 PM EDT) Hepatitis C Antibody 0.07 0.00 - 0.79 S/CO ratio HOSPITAL LAB Comment: Nonreactive Performed at [facility], [place], [place] License 1660 CLIA [id number] Blood specimen (specimen) Blood specimen / Unknown 12/19/2017 4:27 PM EDT 12/19/2017 6:25 PM EDT Patria Markham CN LAB BLOOD ORDERABLES Final Resu lt HOSPITAL LAB from Last 3 Months or Most Recently Relevant to Health Maintenance Insurance MEDICAID OUT OF STATE [facility] [place] [facility] [place]
--- OUTSIDE RECORDS SUMMARY | 2025-03-10 11:32 | XMS_ITS | Encounter Summary ---
Author Organization [facility] Address [address] [place] [address] Care Team Providers Care Oyster Sorter Name Role Phone Hanh Moran MD Primary Care Provider [phone] Encounter Details Date Type Department Care Team (Late st Contact Info) Description 06/22/2024 Lab Requisition [facility] - Main Lab [address] [facility] [place] [id number] Malaika Garcia NP [address] [address] Frequency of micturition Social History Tobacco Use [...] Normal harris isolated 06/23/2024 11:23 AM EST [facility] Other Topography unknown / Unknown 06/21/2024 06/22/2024 10:37 AM EST us Malaika Garcia BACTERIOLOGY PROFESSOR LAB MICROBIOLOGY - GENERA L ORDERABLES Final Result [facility] [address] [place] [address], documented in this encounter Visit Diagnoses Diagnosis Frequency of micturition Urinary frequency documented in this encounter Care Teams Oyster Sorter Relationship Specialty Start Date End Date Hanh Moran MD PCP - General Internal Medicine 09/08/19 documented as of this encounter
--- OUTSIDE RECORDS SUMMARY | 2025-03-10 11:32 | XMS_ITS | Clinical Summary ---
Author Organization [facility] Address [address] [place] [address] Care Team Providers Care Division Operations Manager Name Role Phone Unavailable Primary Care Provider [...] 12/11/2007 Cervical Cancer Screening (Pap Smear) 2010 DTap / Tdap / Td (2 - Td or Tdap) 08/10/2024 08/10/2014 Influenza Vaccine (#1) 2025 Hepatitis B Vaccines Completed 04/12/2015, 10/06/2014, 08/24/2014 Pneumococcal Vaccine Aged Out No long er eligible based on patient's age to complete this topic RSV Ped < 20 months Aged Out No longe r eligible based on patient's age to complete this topic
--- OUTSIDE RECORDS SUMMARY | 2025-03-10 11:32 | XMS_ITS | Encounter Summary ---
Author Organization [facility] Address [address] [place] [address] Care Team Providers Care Retread Supervisor Name Role Phone Hanh Moran MD Primary Care Provider Unavaila ble Reason for Visit * Reason Onset Date Comments 04/15/2022 Encounter Details Date Type Department Care Team Description 04/15/2022 Telephone OBGYN - [address] [place] [phone] Miriam Hong MD [address] [place] [id number] Social History Tobacco Use Types Packs/Day Years [...] AM EDT documented as of this encounter Miscellaneous Notes * Telephone Encounter - Maria Isabel Simon R.N. - 04/15/2022 10:27 AM EDT Return call to patient; Reports ? If SROM occurred around 2am. Continues to trickle, states not a urine odor. Reports increase in cramping. When she urinates; vaginal pressure present: comes and goeswith cramping. Reports lower back pain that comes and goes. Reports period like cramping starting from the back. Experiencing short cramping at this time; tolerable. Instructed should keep appt todayfor provider to check for SROM and also has NST. Advised should she develop regular u/c's q10-15 , increase in s/s labor, spotting prior to appointment; should call office. Patient is GBS negative. Patient agrees to plan. * Telephone Encounter - Emily Quinones - 04/15/2022 10:16 AM EDT Pt calling back - please return call stephan. * Telephone Encounter - Maria Isabel Simon R.N. - 04/15/2022 9:21 AM EDT Return call to patient; vm left to return call. * Telephone Encounter - Lou Rodriguez - 04/15/2022 8:35 AM EDT Patietn calling states water broke lastnight and has been having cramping, denies bleeding, baby is moving well. Please advise (pt has appt tis pm at 1:15pm) documented in this encounter Plan of Treatment Not on file documented as of this encounter Visit Diagnoses Not on filedocumented in this encounter Care Teams Retread Supervisor Relationship Specialty Start Date End Date Hanh Moran MD PCP - General Internal Medicine 09/08/19 documented as of this encounter
== END 2025-03-10 14:58 | disposition home or self-care (01) ==
LOC: HO.HMCC 10:41
PROVIDERS: PCP Internal Medicine; Visit Provider Internal Medicine
DX: I10 Essential (primary) hypertension (principal)

== ENCOUNTER → 2025-03-10 10:40 | Outpatient (BNVA) | payer OTHER, SELFPAY | PROVIDERS: PCP Internal Medicine; Visit Provider Internal Medicine | DX: I10 Essential (primary) hypertension (principal); Z79.899 Other long term (current) drug therapy | CPT/HCPCS: 99212 ==

== ENCOUNTER 2025-05-02 08:21 | Outpatient (REF) | payer OTHER, SELFPAY ==
[2025-05-02 14:39] LABS: Chlamydia pneumoniae PCR Not Detected (Not Detect.); Coronavirus 229E PCR Not Detected (Not Detect.); Coronavirus HKU1 PCR Not Detected (Not Detect.); Coronavirus NL63 PCR Not Detected (Not Detect.); Coronavirus OC43 PCR Not Detected (Not Detect.)
[2025-05-02 14:40] LABS: Influenza A H1 PCR Not Detected (Not Detect.); Influenza A H1-2009 PCR Not Detected (Not Detect.); Influenza A H3 PCR Not Detected (Not Detect.); RSV PCR Not Detected (Not Detect.); Rhino/Enterovirus PCR Not Detected (Not Detect.); SARS-CoV-2 PCR Not Detected (Not Detect.)
== END 2025-05-02 08:22 | disposition home or self-care (01) ==
LOC: HO.LNP 08:21
PROVIDERS: PCP Internal Medicine; Visit Provider Physician Assistant Medical
DX: N39.0 Urinary tract infection, site not specified (principal); J06.9 Acute upper respiratory infection, unspecified; R05.1 Acute cough
CPT/HCPCS: 81003; 87086; 87633; 99212

== ENCOUNTER 2025-05-02 08:21 | Outpatient (AMB) | payer OTHER, SELFPAY ==
--- NOTE | 2025-05-02 08:23 | AM.OFFWIN_ITS ---
Intake Vital Signs 05/02/25 08:29 Height 5 ft 2 in Weight 150 lb BMI 27.4 BP 132/88 Blood Pressure Location Lt brachial Position Sitting Pulse 87 Pulse Source Pulse Oximeter Temp 98.5 F Temp Source Oral Pulse Oximetry (%) 98 Oxygen Delivery Method Room Air Intake Visit Reasons: EP bad cough 5+days, hard to catch breath Intake Note: pt presents with productive cough that gets so bad she can barely catch her breath Patient Tobacco Use Status: Never used Tobacco Allergies Sulfa (Sulfonamide Antibiotics) Allergy (Unknown, Verified 05/02/25 08:33) unknown sulfamethoxazole (From Bactrim) Allergy (Unknown, Verified 05/02/25 08:33) unknown trimethoprim (From Bactrim) Allergy (Unknown, Verified 05/02/25 08:33) unknown Do you need a note to return to daycare/school/sports/work: Yes HPI HPI Comments History of Present Illness Details History - The patient is a 34-year-old female pr esenting with a severe cough and difficulty breathing. - The cough has persisted for almost a w inaja, initially suspected to be due to allergies but has progressively worsened. - The patient experiences difficulty cat joan her breath after coughing fits, which are primarily dry but have recently started producing minimal phlegm. - She reports chest pain associated with the cough and has a history of mild asthma, for which she uses an inhaler that is currently ineffective. - The patient had COVID-19 about a month ago, which affected the entire household, but the current symptoms feel different from that experience. - She has not experienced bronchitis in a long time and has not had a fever since last night, although she felt run down with a slight fever then. - The patient has been using Zyrtec for allergy relief but reports no significant improvement in symptoms. - Additionally, she reports urinary urge ncy and incontinence over the past few days, with no associated burning sensation. - She has been wearing a pad for inconti nence. - She denies blood in the urine, back pa in, abd pain, n/v/d. Physical Exam General: Cooperative, healthy appearing, comfortable and no acute distress Orientation/consciousness: Patient oriented x3 Limitations: No limitations Head: Normal to inspection Ears: Hearing grossly normal bilaterally, external ears normal and TM's normal bilaterally Nose: Normal external nose present, normal nares present, and no nasal discharge present. Face and sinus: Sinuses nontender to palpation. Mouth: Normal oral and palatal mucosa present and moist mucous membranes noted. Throat: Tonsils normal. Uvula is midline. Posterior oropharynx with erythema and no exudates. Eyes: Appearance normal, both eyes and all related structures Neck: Normal visual inspection, full ROM. No lymphadenopathy noted. Respiratory: Clear to auscultation bilaterally. Normal respiratory effort, able to speak in complete sentences. No respiratory distress, not tachypneic, no tripod positioning and no use of accessory muscles. Cardiovascular: Regular rate and rhythm. Normal S1 and S2 GI: No TTP of the abdomen. No guarding or rebound tenderness noted. No CVA tenderness noted. Skin: No rashes or lesions noted Patient was informed and verbally consented to the use of an ambient scribe for clinic note documentation during this visit [facility] Medical History Migraine Giron palsy HTN (hypertension) Surgical History History of surgery Family History Father No problems noted. Mother History of CVA (cerebrovascular accident) Mental health disorder HTN (hypertension) Social History Household Members Other:: , 2 children (4 and 2), works as office assistant receptionist [employer] Housing: House Patient Tobacco Use Status: Never used Tobacco e-Cigarette/Vaping Use: Never Used service: No Current occupational status: employed Cognitive needs: No Hearing needs: No Vision needs: Yes Review of Systems Const All systems reviewed & are unremarkable except as noted in HPI and below Physical Exam Vital Signs: Last Vital Signs Temp 98.5 F 05/02/25 08:29 Pulse 87 05/02/25 08:29 BP 132/88 05/02/25 08:29 Pulse Ox 98 05/02/25 08:29 Oxygen Delivery Method Room Air 05/02/25 08:29 BMI result Body Mass Index 27.4 Assessment & Plan Assessment & Plan (1) Cough: Code(s): R05.9 - Cough, unspecified Qualifiers: Cough type: acute Qualified Code(s): R05.1 - Acute cough (2) Urinary frequency: Code(s): R35.0 - Frequency of micturition Plan Most likely URI vs covid vs flu vs RSV vs asthma exacerbation plan - A respiratory panel will be conducted to identify any viral or bacterial causes. - Prednisone and cough medicine have been prescribed to manage symptoms. - The patient is advised to use a nebulizer with albuterol solution for better lung delivery. - A refill for the albuterol inhaler has been provided. Most likely UTI UA in the office- +pro, blood plan - A urine test will be conducted to rule out urinary tract infection. - will order a urine culture to confirm - drink lots of fuids - follow up with PCP Orders: Orders AMB Urinalysis Automated Today R35.0 - Frequency of micturition Urine Culture Today N39.0 - Urinary tract infection, site not specified Medications: New benzonatate 100 mg PO bid-tid PRN 21 caps 0RF Cough 7 days albuterol sulfate 90 mcg/actuation 2 puffs inhalation Q6H PRN 8.5 grams 0RF shortness of breath or wheezing or cough prednisone 40 mg (2 x 20 mg) PO DAILY 10 tabs 0RF 5 days Coding Level of Care Code Est Pt Level 4 (16258) Diagnoses Acute cough R05.1 Cough type: acute Urinary frequency R35.0
[2025-05-02 08:29] VITALS: BP 132/88; PULSE 87; TEMP 36.9; O2SAT 98; BMI 27.4
--- OUTSIDE RECORDS SUMMARY | 2025-05-02 09:24 | XMS_ITS | Encounter Summary ---
Author Organization [facility] Address [address] [place] [address] Care Team Providers Care Real Estate Instructor Name Role Phone Wilfrid Razo DO Primary Care Provider [phone] Abbey Rubin [facility] Unavailable [phone] Janey Rodarte MD Primary Care Provider [phone] Reason for Visit * Reason Comments Medication Refill Encounter Details Date Type Department Care Team (Late st Contact Info) Description 12/31/2018 Refill [facility] [address] [phone] Wilfrid Razo DO [address] [place] [address] Essential hypertension Social History Tobacco Use Types [...] hypertension documented in this encounter Care Teams Real Estate Instructor Relationship Specialty Start Date End Date Wilfrid Razo DO PCP - General Internal Medicine 07/08/16 02/11/19 Janey Rodarte MD [address] [address] PCP - General Internal Medicine 02/12/19 09/30/21 Abbey Rubin, METALLOGRAPHER [address] [address] [facility] Community Production Zone Leader 06/29/1807/10 documented as of this encounter
--- OUTSIDE RECORDS SUMMARY | 2025-05-02 09:24 | XMS_ITS | Encounter Summary ---
Author Organization [facility] Address [address] [place] [address] Care Team Providers Care Junior Buyer Name Role Phone Wilfrid Razo Primary Care Provider [phone] Abbey Rubin [facility] Unavailable [phone] Janey Rodarte MD Primary Care Provider [phone] Reason for Visit * Reason Comments Medication Refill Encounter Details Date Type Department Care Team (Late st Contact Info) Description 11/04/2017 Refill [facility] [address] [place] [phone] Lisbeth Bloom MD [address] [place], [place] [phone] Encounter for gynecological examination without abnormal finding; [...] pills documented in this encounter Care Teams Junior Buyer Relationship Specialty Start Date End Date LauritaWilfrid leon DO Pancho PCP - General Internal Medicine 07/08/16 02/11/19 Janey Rodarte MD [address] [address] PCP - General Internal Medicine 02/12/19 09/30/21 Abbey Rubin, PHOSPHORIC ACID OPERATOR [address] [facility] [address] [place] [address] [facility] Community Hat And Cap Opener 06/29/1807/10 documented as of this encounter
--- OUTSIDE RECORDS SUMMARY | 2025-05-02 09:24 | XMS_ITS | Clinical Summary ---
Author Organization [address] Address [address] [place] [address] Phone Care Team Providers Care Senior Director Of Global Commercial Technology Solutions Name Role Phone Hanh Moran MD Primary Care Provider [phone] Encounters Date Type Department Care Team Description 03/25/2025 Lab Requisition [facility] - Main Lab [address] [facility] [place] [address] Elo Correa MD Urinary tract infection, site not specified from Last 3 Months Surgical History Surgery Date Site/Laterality Comments APPENDECTOMY 2006 PROCEDURE: LA APPENDEC INDICATED PURPOSE OTH MAJOR PX NOT SPX; COMMENT: Malrotation of large intestine also repaired. TONSILLECTOMY 2000 PROCEDURE: HISTORICAL TONSILLECTOMY WISDOM TOOTH EXTRACTION PROCEDURE: HISTORICAL WISDOM TEETH EXTRACTION; COMMENT: all 4 removed years ago. 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 Asthma 1999 DX:Asthma Family History Medical History Relation Name Comments Uterine cancer Aunt maternal aunt No Known Problems Brother 1 maternal h [facility] brother Diabetes Brother 2 paternal half b rother Other: paternal 1/2 brother Brother 2 No Known Problems Father Brain cancer Maternal Grandfather Lung cancer Maternal Grandmother Stroke Mother first at age 37 , TIA at 38 yrs old and 2nd stroke at 46 Alzheimer's disease Paternal Grandmother No Known Problems Sister maternal h mcf[facility] sister Breast cancer Neg Hx Cervical cancer [...] 5 Years) and At-Risk Patients (6 to 49 Years) (1 of 2 - PCV) 2008 Cholesterol Screening (Lipid Panel) 07/27/2022 HIV Screening 07/27/2022 Social Influencers of Health Screening 07/27/2022 Hypertension/CHF/CAD Annual BMP Blood Test 07/28/2022 Depression Screening 08/18/2024 Cervical Cancer Screening: P ap Smear 10/05/2024 10/05/2021, 07/21/2019 COVID-19 Vaccine (1 - 2023-2 5 season) 2025 Influenza Vaccine (#1) 2025 06/23/2019 DTaP,Tdap,and Td Vaccines (4 - [...] Date/Time Associated Diagnosis Comments CULTURE URINE Routine 03/25/2025 12:00 AM EDT Urinary tract infection, site not specified PAP SMEAR Routine 10/05/2021 from Last 3 Months or Most Recently Relevant to Health Maintenance Results * Culture urine (03/25/2025 12:00 AM EDT) Culture, Urine No growth 03/26/2025 9:14 AM EDT [facility] Urine Urine specimen from urethra / Unknown 03/25/2025 03/25/2025 12:05 PM EDT Elo Correa MD LAB MICROBIOLOGY - GENER AL ORDERABLES Final Result [facility] [address] [place] [address], * Pap smear (10/05/2021) 10/05/2021 Narrative HISTORICAL TESTING LAB RESULTING AGENCY - 10/22/2021 7:26 AM EST [id number] THINPREP PAP, IMAGED: NEGATIVE FOR SQUAMOUS INTRAEPITHELIAL LESION AND MALIGNANCY . NOTE: THE PAP TEST IS A SCREENING TEST WITH AN INHERENT FALSE NEGATIVE RATE. AUTOMATED PRESCREENING OF ALL LIQUID BASED SPECIMENS IS PERFORMED BY THE THINPREP IMAGING SYSTEM UNLESS OTHERWISE STATED. KWAME REZA(ASCP) (CASE ELECTRONICALLY SIGNED 10 20 2021) RESULT OF APTIMA HIGH RISK HPV ASSAY: HIGH RISK HPV: NEGATIVE (SEROTYPES 16,18,31,33,35,39,45,51,52,56,58,59,66,68) COMPLETED ON 2021-10-10 ADEQUACY: SATISFACTORY ENDOCERVICAL/TRANSFORMATION ZONE COMPONENT PRESENT. SOURCE: THINPREP PAP HPV ANY DX: REFLEX 16 AND 18, CERVICAL, IMAGED CLINICAL INFORMATION: HPV ANY DIAGNOSIS. HORMONES, PAP HX NEGATIVE, 2019, LMP 07/18/21, Z12.4 us Danilo Cervantes MD LAB CYTOLOGY ORDERABLES Final Result HISTORICAL TESTING LAB RESULTING AGENCY from Last 3 Months or Most Recently Relevant to Health Maintenance Insurance [facility] Care Teams Senior Director Of Global Commercial Technology Solutions Relationship Specialty Start Date End Date Hanh Moran MD [address] [place] [address] PCP - General Internal Medicine 03/25/25
--- OUTSIDE RECORDS SUMMARY | 2025-05-02 09:24 | XMS_ITS | Clinical Summary ---
Author Organization [facility] Address [address] [place] [address] Care Team Providers Care Orthodontist Vice President Name Role Phone Unavailable Primary Care Provider Unavailabl e Source Comments Please note that some or all of the patient's information could have additional privacy protections. State laws allow health care providers to render certain types of treatment to minors without parental consent. Please do not assume that this information can be shared solely by obtaining just the consent of the patient's parent/guardian. Please determine if all or part of the patient's care was rendered without parent/guardian involvement. And, if so, obtain the minor's consent prior to disclosure.[facility] Social History Tobacco Use Types Packs/Day Years Used Date Smoking Tobacco: Never Assessed Comments Unknown Sex and Gender Information Value Date Recorded Sex Assigned at Not on file Legal Sex Female 2:11 AM EST Gender Identity Not on file Sexual Orientation Not on file Plan of Treatment Health Maintenance Due Date Last Done Comments DTaP/TDAP/TD VACCINES (1 - Tdap) 1996 ADOLESCENT HIV SCREENING 2002 COVID-19 Vaccine (2023-2 5 season) 2025 INFLUENZA (#1) 2025 NIRSEVIMAB VACCINES UNDER 8 MONTHS Aged Out No longer eligible based on patient's age to complete this topic
--- OUTSIDE RECORDS SUMMARY | 2025-05-02 09:24 | XMS_ITS | Clinical Summary ---
Author Organization [facility] Address [address] [place] [address] Care Team Providers Care Motor Vehicle Or Caravan Salesperson Name Role Phone Unavailable Primary Care Provider [...] Due Date Last Done Comments Pneumococcal Vaccine: Pediat toan (0-5 Years) and At-Risk Patients (6 to 49 Years) (1 of 2 - PCV) 2008 Pap Smear (Ages 21-65) 2010 HPV Vaccines (1 - 3-dose SCDM series) 2016 DTaP/Tdap/Td Vaccines (2 - T d or Tdap) 08/10/2024 08/10/2014 Influenza Vaccine 03/18/2025 06/01/2017 COVID-19 Vaccine (2023- season) 2025 Hepatitis B Vaccines Completed 04/12/2015, 10/06/2014, 08/24/2014 HIV Screening Completed 12/19/2017 Hepatitis C Virus Screening Completed 12/19/2017 Procedures Procedure Name Priority Date/Time Associated Diagnosis [...] to Confirmation (12/19/2017 4:27 PM EDT) Pathologist [facility] HIV 1/2 Ag/Ab CMIA Nonreactive Nonreactive HOSPITAL LAB Comment: Results show no evidence of infection by HIV 1/2. If clinically indicated, repeat CMIA or test by nucleic acid amplification. Performed at [facility], [place], [place] License 0385 CLIA [id number] Blood specimen (specimen) Blood specimen / Unknown 12/19/2017 4:27 PM EDT 12/19/2017 6:25 PM EDT us Patria Markham CN LAB BLOOD ORDERABLES Final Resu lt HOSPITAL LAB * Hepatitis C Virus (HCV) Antibody (12/19/2017 4:27 PM EDT) Hepatitis C Antibody 0.07 0.00 - 0.79 S/CO ratio HOSPITAL LAB Comment: Nonreactive Performed at [facility], [place], [place] License 4700 CLIA [id number] Blood specimen (specimen) Blood specimen / Unknown 12/19/2017 4:27 PM EDT 12/19/2017 6:25 PM EDT Patria Markham CN LAB BLOOD ORDERABLES Final Resu lt HOSPITAL LAB from Last 3 Months or Most Recently Relevant to Health Maintenance Insurance MEDICAID OUT OF STATE [facility]
--- OUTSIDE RECORDS SUMMARY | 2025-05-02 09:24 | XMS_ITS | Clinical Summary ---
Author Organization [facility] Address [address] [place] [address] Care Team Providers Care Frit Maker Name Role Phone Unavailable Primary Care Provider [...]
--- OUTSIDE RECORDS SUMMARY | 2025-05-02 09:24 | XMS_ITS | Encounter Summary ---
Author Organization [facility] Address [address] [place] [address] Care Team Providers Care Extrusion Die Repairer Name Role Phone Hanh Moran MD Primary Care Provider [phone] Encounter Details Date Type Department Care Team (Late st Contact Info) Description 11/26/2024 Lab Requisition [facility] - Main Lab [address] [place] [address] Stanley Drake MD [address] [facility] [address] [place] [address] Urinary tract infection, site not specified Social [...] if clinically indicated. 11/27/2024 12:54 PM EDT [facility] Urine Urine specimen obtained by clean catch procedure / Unknown 11/26/2024 2:08 PM EDT 11/26/2024 5:54 PM EDT us Stanley Drake MD LAB MICROBIOLOGY - G ENERAL ORDERABLES Final Result [facility] [address] [place] [address], documented in this encounter Visit Diagnoses Diagnosis Urinary tract infection, site not specified documented in this encounter Care Teams Extrusion Die Repairer Relationship Specialty Start Date End Date Hanh Moran MD [address] [place] [address] PCP - General Internal Medicine 03/25/25 documented as of this encounter
--- OUTSIDE RECORDS SUMMARY | 2025-05-02 09:24 | XMS_ITS | Encounter Summary ---
Author Organization [facility] [address] Address [address] [place] [address] Care Team Providers Care Associate Professor Of Education Name Role Phone Hanh Moran MD Primary Care Provider [phone] Encounter Details Date Type Department Care Team (Late st Contact Info) Description 08/20/[address] [facility] - Main Lab [address] [place] [phone] Stanley Drake MD [address] [facility] [address] [place] [address] Dysuria Social History Tobacco Use Types Packs/Day [...] if clinically indicated. 08/20/2024 11:23 AM EST [facility] Other Urine specimen from urethra / Unknown 08/19/2024 08/20/2024 10:48 AM EST us Stanley Drake MD LAB MICROBIOLOGY - G ENERAL ORDERABLES Final Result [facility] [address] [place] [address], documented in this encounter Visit Diagnoses Diagnosis Dysuria documented in this encounter Care Teams Associate Professor Of Education Relationship Specialty Start Date End Date Hanh Moran MD [address] [place] [address] PCP - General Internal Medicine 03/25/25 documented as of this encounter
--- OUTSIDE RECORDS SUMMARY | 2025-05-02 09:24 | XMS_ITS | Encounter Summary ---
Author Organization [facility] Address [address] [place] [address] Care Team Providers Care Director Equipment Name Role Phone Wilfrid Razo DO Primary Care Provider [phone] Abbey Rubin [facility] Unavailable [phone] Janey Rodarte MD Primary Care Provider [phone] Reason for Visit * Reason Comments Medication Refill Encounter Details Date Type Department Care Team (Late st Contact Info) Description 02/05/2019 Refill [facility] [address] [place] [phone] Barrett Gallegos MD Needs valid address Encounter [...] pills documented in this encounter Care Teams Director Equipment Relationship Specialty Start Date End Date Wilfrid Razo DO PCP - General Internal Medicine 07/08/16 02/11/19 Janey Rodarte MD [address] [facility] [address] PCP - General Internal Medicine 02/12/19 09/30/21 Abbey Rubin, [facility] [address] [facility] [address] [place] [address] [facility] Community Supervisor Cab 06/29/1807/10 documented as of this encounter
--- OUTSIDE RECORDS SUMMARY | 2025-05-02 09:24 | XMS_ITS | Encounter Summary ---
Author Organization [facility] Address [address] [place] [address] Care Team Providers Care Mixer Diamond Powder Name Role Phone VinceAbbey Mcmullen CONCRETE CRUSHER LOADER OPERATOR Unavailable [phone] Janey Rodarte MD Primary Care Provider [phone] Reason for Visit * Reason Comments Medication Refill Encounter Details Date Type Department Care Team (Late st Contact Info) Description 05/17/2019 Refill [facility] [address] [place] [phone] Lisbeth Bloom MD [address] [place] [phone] Encounter for surveillance of contraceptive pills Social [...] pills documented in this encounter Care Teams Mixer Diamond Powder Relationship Specialty Start Date End Date Janey Rodarte MD [address] [address] PCP - General Internal Medicine 02/12/19 09/30/21 Abbey Rubin, CONCRETE CRUSHER LOADER OPERATOR [address] [facility] [address] [place] [address] [facility] Community Manager Intensive Care Unit 06/29/1807/10 documented as of this encounter
--- OUTSIDE RECORDS SUMMARY | 2025-05-02 09:24 | XMS_ITS | Encounter Summary ---
Author Organization [facility] Address [address] [place] [address] Care Team Providers Care Wood Gluer Name Role Phone Hanh Moran MD Primary Care Provider [phone] Encounter Details Date Type Department Care Team (Late st Contact Info) Description 2024 Lab Requisition [facility] - Main Lab [address] [place] [phone] Stanley Drake MD [address] [facility] [address] [place] [address] Dysuria Social History Tobacco Use Types Packs/Day [...] URINE Routine 2024 12:00 AM EDT Dysuria documented in this encounter Results * Culture urine (2024 12:00 AM EDT) Culture, Urine 10,000-49,000 CFU/mL Mixed urogenital harris, no uropathogens present. Suggest repeat specimen if clinically indicated. 12/11/2024 10:22 AM EDT [facility] Urine Urine specimen from urethra / Unknown 2024 2024 1:10 PM EDT us Stanley Drake MD LAB MICROBIOLOGY - G ENERAL ORDERABLES Final Result [facility] [address] [place] [address], documented in this encounter Visit Diagnoses Diagnosis Dysuria documented in this encounter Care Teams Wood Gluer Relationship Specialty Start Date End Date Hanh Moran MD [address] [place] [address] PCP - General Internal Medicine 03/25/25 documented as of this encounter
--- OUTSIDE RECORDS SUMMARY | 2025-05-02 09:24 | XMS_ITS | Encounter Summary ---
Author Organization [facility] Address [address] [place] [address] Care Team Providers Care Distance Learning Program Coordinator Name Role Phone Hanh Moran MD Primary Care Provider [phone] Encounter Details Date Type Department Care Team (Late st Contact Info) Description 06/22/2024 Lab Requisition [facility] - Main Lab [address] [facility] [place] [phone] Malaika Garcia NP [address] [address] Frequency of micturition Social History Tobacco Use [...] Normal harris isolated 06/23/2024 11:23 AM EST [facility] Other Topography unknown / Unknown 06/21/2024 06/22/2024 10:37 AM EST us Malaika Garcia FUNERAL ATTENDANT LAB MICROBIOLOGY - GENERA L ORDERABLES Final Result [facility] [address] [place] [address], documented in this encounter Visit Diagnoses Diagnosis Frequency of micturition Urinary frequency documented in this encounter Care Teams Distance Learning Program Coordinator Relationship Specialty Start Date End Date Hanh Moran MD [address] [place] [address] PCP - General Internal Medicine 03/25/25 documented as of this encounter
--- OUTSIDE RECORDS SUMMARY | 2025-05-02 09:24 | XMS_ITS | Encounter Summary ---
Author Organization [facility] Address [address] [place] [address] Care Team Providers Care Search Engine Optimization Manager Name Role Phone Hanh Moran MD Primary Care Provider [phone] Encounter Details Date Type Department Care Team (Late st Contact Info) Description 03/25/2025 Lab Requisition [facility] - Main Lab [address] [facility] [place] [address] Elo Correa MD [address] [place] [address] Urinary tract infection, site not specified Social [...] in this encounter Results * Culture urine (03/25/2025 12:00 AM EDT) Culture, Urine No growth 03/26/2025 9:14 AM EDT [facility] Urine Urine specimen from urethra / Unknown 03/25/2025 03/25/2025 12:05 PM EDT us Elo Correa MD LAB MICROBIOLOGY - GENER AL ORDERABLES Final Result [facility] [address] [place] [address], documented in this encounter Visit Diagnoses Diagnosis Urinary tract infection, site not specified documented in this encounter Care Teams Search Engine Optimization Manager Relationship Specialty Start Date End Date Hanh Moran MD [address] [place] [address] PCP - General Internal Medicine 03/25/25 documented as of this encounter
--- OUTSIDE RECORDS SUMMARY | 2025-05-02 09:24 | XMS_ITS | Encounter Summary ---
Author Organization [facility] Address [address] [place] [address] Care Team Providers Care Manager Implementation Name Role Phone Hanh Moran MD Primary Care Provider [phone] Encounter Details Date Type Department Care Team (Late st Contact Info) Description 08/17/2024 Lab Requisition [facility] - Main Lab [address] [place] [phone] Stanley Drake MD [address] [facility] [address] [place] [address] Dysuria Social History Tobacco Use Types Packs/Day [...] if clinically indicated. 08/18/2024 9:12 AM EST [facility] Other Urine specimen from urethra / Unknown 08/16/2024 08/17/2024 10:30 AM EST us Stanley Drake MD LAB MICROBIOLOGY - G ENERAL ORDERABLES Final Result [facility] [address] [place] [address], documented in this encounter Visit Diagnoses Diagnosis Dysuria documented in this encounter Care Teams Manager Implementation Relationship Specialty Start Date End Date Hanh Moran MD [address] [place] [address] PCP - General Internal Medicine 03/25/25 documented as of this encounter
--- OUTSIDE RECORDS SUMMARY | 2025-05-02 09:24 | XMS_ITS | Clinical Summary ---
Author Organization [facility] Address [address] [place] [address] Care Team Providers Care Inside Polisher Name Role Phone Jhoan Pederson MD Primary [...] COVID-19 Vaccine ( - 2023-2 5 season) 2025 Influenza (#1) 2025 Zoster (Shingrix) (1 of 2) 12/11/2039 HPV Vaccine (No Doses Required) Completed Hep A Aged Out No longer eligi ble based on patient's age to complete this topic Hib Aged Out No longer eligi ble based on patient's age to complete this topic Meningococcal ACWY Aged Out No longer eligible based on patient's age to complete this topic Pneumococcal Aged Out No longer eligi ble based on patient's age to complete this topic Care Teams Inside Polisher Relationship Specialty Start Date End Date Jhoan Pederson MD PCP - General 03/24/23 Jhoan Pederson MD PCP - Backup PCP Family Medicine 09/17/23
--- OUTSIDE RECORDS SUMMARY | 2025-05-02 09:24 | XMS_ITS | Encounter Summary ---
Author Organization [facility] Address [address] [place] [address] Care Team Providers Care Mathematics Professor Name Role Phone Wilfrid Razo DO Primary Care Provider [phone] Abbey Rubin [facility] Unavailable [phone] Janey Rodarte MD Primary Care Provider [phone] Encounter Details Date Type Department Care Team (Late st Contact Info) Description 10/01/2017 Scanned Document [facility] [address] [address] Wilfrid Razo DO [address] [place] [phone] Social History Tobacco Use Types Packs/Day Years [...] on filedocumented in this encounter Care Teams Mathematics Professor Relationship Specialty Start Date End Date Wilfrid Razo DO PCP - General Internal Medicine 07/08/16 02/11/19 Janey Rodarte MD [address] [facility] [place] [address] PCP - General Internal Medicine 02/12/19 09/30/21 Abbey Rubin, [facility] [address] [address] [facility] Community Rn Admissions 06/29/1807/10 documented as of this encounter
--- OUTSIDE RECORDS SUMMARY | 2025-05-02 09:24 | XMS_ITS | Encounter Summary ---
Author Organization [facility] Address [address] [place] [address] Care Team Providers Care Double End Tenoner Setter Name Role Phone Wilfrid Razo DO Primary Care Provider + [phone] Abbey Rubin [facility] Unavailable [phone] Janey Rodarte MD Primary Care Provider [phone] Encounter Details Date Type Department Care Team (Late st Contact Info) Description 07/17/2017 Scanned Document [facility] [address] [address] Wilfrid Razo DO [address] [place] [address] Social History Tobacco Use Types Packs/Day Years [...] on filedocumented in this encounter Care Teams Double End Tenoner Setter Relationship Specialty Start Date End Date Wilfrid Razo DO PCP - General Internal Medicine 07/08/16 02/11/19 Janey Rodarte MD [address] [facility] [address] PCP - General Internal Medicine 02/12/19 09/30/21 Abbey Rubin, [facility] [address] [address] [facility] Community Service Desk Analyst 06/29/1807/10 documented as of this encounter
== END 2025-05-02 09:39 | disposition home or self-care (01) ==
PROVIDERS: PCP Internal Medicine; Visit Provider Physician Assistant Medical
DX: R05.1 Acute cough (principal); R35.0 Frequency of micturition

== ENCOUNTER 2025-06-18 09:34 | Outpatient (REF) | payer OTHER, SELFPAY ==
--- OUTSIDE RECORDS SUMMARY | 2025-06-18 09:38 | XMS_ITS | Encounter Summary ---
Author Organization [facility] Address [address] [place] [address] Care Team Providers Care Rotogravure Press Operator Name Role Phone Wilfrid Razo DO Primary Care Provider [phone] Abbey Rubin [facility] Unavailable [phone] Janey Rodarte MD Primary Care Provider [phone] Reason for Visit * Reason Comments Medication Refill Encounter Details Date Type Department Care Team (Late st Contact Info) Description 02/05/2019 Refill [facility] [address] [place] [phone] Barrett Gallegos MD Needs valid address Encounter [...] pills documented in this encounter Care Teams Rotogravure Press Operator Relationship Specialty Start Date End Date Wilfrid Razo DO PCP - General Internal Medicine 07/08/16 02/11/19 Janey Rodarte MD [address] [facility] [place] [address] PCP - General Internal Medicine 02/12/19 09/30/21 Abbey Rubin, [facility] [address] [facility] [address] [place] [address] [facility] Community Tray Setter 06/29/1807/10 documented as of this encounter
--- OUTSIDE RECORDS SUMMARY | 2025-06-18 09:38 | XMS_ITS | Clinical Summary ---
Author Organization [facility] Address [address] [place] [address] Care Team Providers Care Preparation Room Worker Name Role Phone Unavailable Primary Care [...]
--- OUTSIDE RECORDS SUMMARY | 2025-06-18 09:38 | XMS_ITS | Clinical Summary ---
Author Organization [facility] Address [address] [place] [address] Care Team Providers Care Ball Point Splitter Name Role Phone Unavailable Primary Care Provider [...] PCV) 2008 Pap Smear (Ages 21-65) 2010 DTaP/Tdap/Td Vaccines (2 - T d or Tdap) 08/10/2024 08/10/2014 Influenza Vaccine 03/18/2025 06/01/2017 COVID-19 Vaccine ( - 2023- season) 2025 Hepatitis B Vaccines Completed 04/12/2015, 10/06/2014, 08/24/2014 HIV Screening Completed 12/19/2017 Hepatitis C Virus Screening Completed 12/19/2017 HPV Vaccines (No Doses Required) Completed Procedures Procedure Name Priority Date/Time Associated Diagnosis [...] test by nucleic acid amplification. Performed at [facility], [place], [place] License 0385 CLIA [id number] Blood specimen (specimen) Blood specimen / Unknown 12/19/2017 4:27 PM EDT 12/19/2017 6:25 PM EDT us Patria Markham CN LAB BLOOD ORDERABLES Final Resu lt HOSPITAL LAB * Hepatitis C Virus (HCV) Antibody (12/19/2017 4:27 PM EDT) Hepatitis C Antibody 0.07 0.00 - 0.79 S/CO ratio HOSPITAL LAB Comment: Nonreactive Performed at [facility], [place] License 0387 CLIA [id number] Blood specimen (specimen) Blood specimen / Unknown 12/19/2017 4:27 PM EDT 12/19/2017 6:25 PM EDT Patria Markham CN LAB BLOOD ORDERABLES Final Resu lt HOSPITAL LAB from Last 3 Months or Most Recently Relevant to Health Maintenance [place] [facility] [place]
--- OUTSIDE RECORDS SUMMARY | 2025-06-18 09:38 | XMS_ITS | Encounter Summary ---
Author Organization [facility] Address [address] [place] [address] Care Team Providers Care Manager Creative Services Name Role Phone Wilfrid Razo DO Primary Care Provider [phone] Abbey Rubin [facility] Unavailable [phone] Janey Rodarte MD Primary Care Provider [phone] Encounter Details Date Type Department Care Team (Late st Contact Info) Description 10/01/2017 Scanned Document [facility] [address] [address] Wilfrid Razo DO [address] [place] [address] Social History Tobacco Use Types Packs/Day Years [...] on filedocumented in this encounter Care Teams Manager Creative Services Relationship Specialty Start Date End Date Wilfrid Razo DO PCP - General Internal Medicine 07/08/16 02/11/19 Janey Rodarte MD [address] [facility] [place] [address] PCP - General Internal Medicine 02/12/19 09/30/21 Abbey Rubin, [facility] [address] [address] [facility] Community Master Deputy Sheriff Court Security 06/29/1807/10 documented as of this encounter
--- OUTSIDE RECORDS SUMMARY | 2025-06-18 09:38 | XMS_ITS | Encounter Summary ---
Author Organization [facility] Address [address] [place] [address] Care Team Providers Care Account Underwriter Name Role Phone Wilfrid Razo DO Primary Care Provider [phone] Abbey Rubin [facility] Unavailable [phone] Janey Rodarte MD Primary Care Provider [phone] Reason for Visit * Reason Comments Medication Refill Encounter Details Date Type Department Care Team (Late st Contact Info) Description 12/31/2018 Refill [facility] [address] [phone] Wilfrid Razo DO [address] [place] [address] Essential hypertension Social History Tobacco Use Types [...] hypertension documented in this encounter Care Teams Account Underwriter Relationship Specialty Start Date End Date Wilfrid Razo DO PCP - General Internal Medicine 07/08/16 02/11/19 Janey Rodarte MD [address] [address] PCP - General Internal Medicine 02/12/19 09/30/21 Abbey Rubin, HAND CANDY MOLDER [address] [address] [facility] Community Sales Agent Fire Insurance 06/29/1807/10 documented as of this encounter
--- OUTSIDE RECORDS SUMMARY | 2025-06-18 09:38 | XMS_ITS | Encounter Summary ---
Author Organization [facility] Address [address] [place] [address] Care Team Providers Care Paper Machine Backtender Name Role Phone Wilfrid Razo DO Primary Care Provider + [phone] Abbey Rubin [facility] Unavailable [phone] Janey Rodarte MD Primary Care Provider [phone] Encounter Details Date Type Department Care Team (Late st Contact Info) Description 07/17/2017 Scanned Document [facility] [address] [address] Wilfrid Razo DO [address] [place] [address] Social History Tobacco Use Types Packs/Day Years [...] on filedocumented in this encounter Care Teams Paper Machine Backtender Relationship Specialty Start Date End Date Wilfrid Razo DO PCP - General Internal Medicine 07/08/16 02/11/19 Janey Rodarte MD [address] [facility] [place] [address] PCP - General Internal Medicine 02/12/19 09/30/21 Abbey Rubin, [facility] [address] [address] [facility] Community Corrosion Control Engineer 06/29/1807/10 documented as of this encounter
--- OUTSIDE RECORDS SUMMARY | 2025-06-18 09:38 | XMS_ITS | Clinical Summary ---
Author Organization [facility] Address [address] [place] [address] Care Team Providers Care Defense Analyst Name Role Phone Unavailable Primary Care Provider [...] so, obtain the minor's consent prior to disclosure.[facility] Social History Tobacco Use Types Packs/Day [...]
--- OUTSIDE RECORDS SUMMARY | 2025-06-18 09:38 | XMS_ITS | Encounter Summary ---
Author Organization [facility] Address [address] [place] [address] Care Team Providers Care Injection Molding Machine Operator Name Role Phone VniceAbbey Mcmullen [employer] Unavailable Janey Rodarte MD Primary Care Provider [phone] Reason for Visit * Reason Comments Medication Refill Encounter Details Date Type Department Care Team (Late st Contact Info) Description 05/17/2019 Refill [facility] [address] [place] [phone] Lisbeth Bloom MD [address] [place] [phone] Encounter for surveillance of contraceptive pills Social [...] pills documented in this encounter Care Teams Injection Molding Machine Operator Relationship Specialty Start Date End Date Janey Rodarte MD [address] [place] [address] PCP - General Internal Medicine 02/12/19 09/30/21 Abbey Rubin, [employer] [address] [facility] [address] [place] [address] [facility] Community Solar Pv Installer 06/29/1807/10 documented as of this encounter
--- OUTSIDE RECORDS SUMMARY | 2025-06-18 09:38 | XMS_ITS | Encounter Summary ---
Author Organization [facility] Address [address] [place] [address] Care Team Providers Care Maintenance Supervisor Electrical Name Role Phone LauritaWilfrid leon Primary Care Provider [phone] Abbey Rubin [facility] Unavailable [phone] Janey Rodarte MD Primary Care Provider [phone] Reason for Visit * Reason Comments Medication Refill Encounter Details Date Type Department Care Team (Late st Contact Info) Description 11/04/[address] [facility] [address] [place] [phone] Lisbeth Bloom MD [address] [place] [phone] Encounter for gynecological examination without abnormal finding; [...] pills documented in this encounter Care Teams Maintenance Supervisor Electrical Relationship Specialty Start Date End Date LauritaWilfrid leon DO [place] PCP - General Internal Medicine 07/08/16 02/11/19 Janey Rodarte MD [address] [place] [address] [address] PCP - General Internal Medicine 02/12/19 09/30/21 Abbey Rubin, MESSENGER FLOORPERSON [address] [facility] [address] [place] [address] [facility] Community Fractionating Still Operator 06/29/1807/10 documented as of this encounter
--- OUTSIDE RECORDS SUMMARY | 2025-06-18 09:38 | XMS_ITS | Clinical Summary ---
Author Organization [facility] Address [address] [place] [address] Care Team Providers Care Mobile Tester Name Role Phone Jhoan Pederson MD Primary [...] 3-dose series) 2008 COVID-19 Vaccine ( - 2024-2 6 season) 2025 Influenza (#1) 2025 Zoster (Shingrix) [...] age to complete this topic Care Teams Mobile Tester Relationship Specialty Start Date End Date Jhoan Pederson MD PCP - General 03/24/23 Jhoan Pederson MD PCP - Backup PCP Family Medicine 09/17/23
[2025-06-18 11:25] LABS: MANUAL DIFF FLAG NO
[2025-06-18 11:33] LABS: Hematocrit 37.2 % (37.0-47.0); Hemoglobin 12.4 g/dl (12.0-16.0); Imm Gran Abs Auto 0.01 X10*3/uL (0.00-0.03); Imm Gran Pct Auto 0.2 % (0.0-0.4); Lymphocytes Absolute Auto 1.7 X10*3/uL (1.2-4.9); Mean Corpuscular HGB Conc 33.3 g/dl (31.0-35.0); Mean Corpuscular Hemoglobin 29.2 pg (27.0-33.0); Mean Corpuscular Volume 87.7 fL (80.0-98.0); NRBC Abs Auto 0.000 X10*3/uL (0.0-0.012); NRBC Pct Auto 0.0 /100WBC (0.0-0.2); Platelet Count 274 X10*3/uL (160-400); Red Blood Count 4.24 X10*6/uL (4.20-5.50); White Blood Count 4.7 X10*3/uL (4.8-10.8)
[2025-06-18 11:39] LABS: Appearance Urine Cloudy; Glucose Urine UA Negative (Negative); PH 7.0 (5.0-9.0); Specific Gravity - Urine 1.025 (1.005-1.025); UMIC TRIGGER UA YES
[2025-06-18 12:04] LABS: Alanine Aminotransferase 13 U/L (0-31); Albumin Level 4.2 g/dL (3.5-5.0); Alkaline Phosphatase 52 U/L (39-117); Anion Gap 7 (12-20); Aspartate Amino Transferase 21 U/L (5-31); Blood Urea Nitrogen 10 mg/dL (9-16); Calcium 9.0 mg/dL (8.4-10.2); Carbon Dioxide 26 mmol/L (22-29); Chloride 110 mmol/L (96-108); Cholesterol 155 mg/dL (<200); Estimated Glomerular Filt Rate > 60; HDL Cholesterol 60 mg/dL (>40); Potassium 3.7 mmol/L (3.3-5.1); Sodium 139 mmol/L (135-145); Total Protein 6.9 g/dL (6.5-8.0); Triglycerides 40 mg/dL (<150)
== END 2025-06-18 09:35 | disposition home or self-care (01) ==
LOC: HO.HMGCLDS 09:34
PROVIDERS: PCP Internal Medicine; Visit Provider Internal Medicine
DX: Z00.00 Encounter for general adult medical examination without abnormal findings (principal); I10 Essential (primary) hypertension
CPT/HCPCS: 36415; 80053; 80061; 81001; 84443; 85025

== ENCOUNTER 2025-06-22 09:09 | Outpatient (AMB) | payer OTHER, SELFPAY ==
--- NOTE | 2025-06-22 09:13 | A.OFFPC_ITS ---
Vital Signs 06/22/25 09:17 Height 5 ft 2 in Weight 151 lb BMI 27.6 BP 134/80 Blood Pressure Location Lt brachial Position Sitting Respiration 16 Pulse 63 Pulse Source Pulse Oximeter Temp 98.1 F Temp Source Oral Pulse Oximetry (%) 99 Oxygen Delivery Method Room Air Intake Visit Reasons: Annual PE Intake Note: Pt is here today for PE. Allergies Sulfa (Sulfonamide Antibiotics) Allergy (Unknown, Verified 06/22/25 09:18) unknown sulfamethoxazole (From Bactrim) Allergy (Unknown, Verified 06/22/25 09:18) unknown trimethoprim (From Bactrim) Allergy (Unknown, Verified 06/22/25 09:18) unknown Medication List - Last Reconciled 06/22/25 by Hanh Moran MD albuterol sulfate 90 mcg/actuation 2 puffs inhalation Q6H PRN amlodipine 5 mg PO BID multivitamin 1 tab PO DAILY Ventolin HFA 90 mcg/actuation (albuterol sulfate) 2 puffs inhalation Q6-8H 30 days NS Tobacco use date assessed: 06/22/25 Dental Screening Dental Screen Date: 08/20/24 HPI Annual PE HPI Details Pt presents for PE. [facility] Medical History (Updated 06/22/25 @ 09:43 by Hanh Moran MD) Annual physical exam Migraine Giron palsy HTN (hypertension) Surgical History History of surgery Family History Father No problems noted. Mother History of CVA (cerebrovascular accident) Mental health disorder HTN (hypertension) Social History (Updated 06/22/25 @ 09:35 by Hanh Moran MD) Household Members Other:: engaged, 2 children (4 and 2), works as bilingual medical receptionist [employer] Housing: House Patient Tobacco Use Status: Never used Tobacco e-Cigarette/Vaping Use: Never Used service: No Current occupational status: employed Cognitive needs: No Hearing needs: No Vision needs: Yes Questionnaire PHQ-9 Over the last 2 weeks, how often have you been bothered by any of the following problems? 1. Little interest or pleasure in doing things: not at all 2. Feeling down, depressed, or hopeless: not at all 3. Trouble falling or staying asleep, or sleeping too much: not at all 4. Feeling tired or having little energy: not at all 5. Poor appetite or overeating: not at all 6. Feeling bad about yourself - or that you are a failure or have let yourself or your family down: not at all 7. Trouble concentrating on things, such as reading the newspaper or watching television: not at all 8. Moving or speaking so slowly that other people could have noticed. Or the opposite - being so fidgety or restless that you have been moving around a lot more than usual: not at all 9. Thoughts that you would be better off or of hurting yourself in some way: not at all Total score: 0 Depression Screening Interpretation: Negative Depression Screening Done: Yes Source: Developed by Drs. Erasmo Rachel, Isabel Bennett, Lauro Ramírez and colleagues, with an educational venus from [employer]. Thrive Questionnaire Date Thrive assessed: 08/19/24 I am a: Patient What is your living situation today?: I have a steady place to live Within the past 12 months, did the food you bought not last and you didn't have the money to get more?: Never true Within the past 12 months, did you worry whether your food would run out before you got money to buy more?: Never true Do you have trouble paying for medicines?: No Do you have trouble getting transportation to medical appointments?: No Do you have trouble paying your heating and electricity bill?: No Do you have trouble taking care of your child, family member or friend?: No Do you have trouble with day-to-day activities such as bathing, preparing meals, shopping, managing finances, etc.?: No Are you currently unemployed and looking for a job?: No Are you interested in more education?: Yes Please select the resources that you would like help with: None Currently or been in a relationship where the following occur: No concerns reported THRIVE Score: 0 RAMAN-7 AMB Questionnaire RAMAN-7 Date RAMAN - 7 assessed: 08/20/24 Feeling nervous, anxious, or on edge: 0 = Not at all Not being able to stop or control worryin = Not at all Worrying too much about different things: 0 = Not at all Trouble relaxin = Not at all Being so restless that it is hard to sit still: 0 = Not at all Becoming easily annoyed or irritable: 0 = Not at all Feeling afraid as if something awful might happen: 0 = Not at all Total RAMAN-7 score (0-4 normal; 5-9 mild; 10-14 moderate; 15-21 severe): 0 Source: Developed by Drs. Erasmo Rachel, Isabel Bennett, Lauro Ramírez and colleagues, with an educational venus from [employer]. Review of Systems Const All systems reviewed & are unremarkable except as noted in HPI and below Eyes Reports no additional complaints ENT Reports no additional complaints Card Reports no additional complaints Resp Reports no additional complaints GI Reports no additional complaints Reports no additional complaints Physical exam (Primary Care) Vital Signs: Last Vital Signs Temp 98.1 F 06/22/25 09:17 Pulse 63 06/22/25 09:17 Resp 16 06/22/25 09:17 BP 134/80 06/22/25 09:17 Pulse Ox 99 06/22/25 09:17 Oxygen Delivery Method Room Air 06/22/25 09:17 BMI result Body Mass Index 27.6 Tobacco/Smoking Status: Tobacco use Status Tobacco use date assessed 06/22/25 06/22/25 09:22 Patient Tobacco Use Status Never used Tobacco 06/22/25 09:35 e-Cigarette/Vaping Use Never Used 06/22/25 09:35 PHQ-9: PHQ-9 Score PHQ-9: Total score 0 06/22/25 09:33 Depression Screening Interpretation: Negative Thrive Assessment: Date of Thrive Assessment Date Thrive assessed 08/19/24 06/22/25 09:13 Currently or been in a relationship where the following occur: No concerns reported Const General: no acute distress HENMT Head: Yes normal to inspection Ears: TM's normal bilaterally Mouth: Normal oral and palatal mucosa present Eyes General: appearance normal, both eyes and all related structures Neck Neck: Yes no lymphadenopathy and Yes supple Resp Effort & Inspection: normal respiratory effort Auscultation: clear to auscultation bilaterally Cardio Rhythm: regular rhythm Heart sounds: S1 normal heart sound present and S2 normal heart sound present GI Inspection: Yes normal to inspection Palpation (GI): Soft to palpation Percussion: Yes normal to percussion Auscultation: normal bowel sounds Results AMB Urinalysis, Automated UA Leukoctes 0 Petra/uL Last Edit by SEYMOUR Damian on 06/22/25 09:50 UA Nitrite Negative Last Edit by Alabnia Swift Laura on 06/22/25 09:50 UA Urobilinogen 0.2 mg/dL Last Edit by SEYMOUR Damian on 06/22/25 09: 50 UA Protein 0 mg/dL Last Edit by Albania Swift Laura on 06/22/25 09:50 UA pH 6.5 Last Edit by Albania Swift Laura on 06/22/25 09:50 UA Blood 200 Donovan/uL Last Edit by Albania Swift Laura on 06/22/25 09:50 UA Specific [place] 1.005 Last Edit by SEYMOUR Damian on 06/22/25 09 :50 UA Ketone Negative Last Edit by Albania Swift Laura on 06/22/25 09:50 UA Bilirubin 0 mg/dL Last Edit by Albania Swift Laura on 06/22/25 09:50 UA Glucose 0 mg/dL Last Edit by Albania Swift Laura on 06/22/25 09:50 Coding Level of Care Code Est Pt Prev Care 18-39y(02628) Diagnoses Annual physical exam Z00.00 HTN (hypertension) I10 Assessment & Plan Assessment & Plan (1) Annual physical exam: Code(s): Z00.00 - Encounter for general adult medical examination without abnormal findings Category: Medical Plan: Well-balanced diet regular physical activity discussed with the patient. Pap smear was done today. Patient will restart progesterone only oral contraceptive (2) HTN (hypertension): Code(s): I10 - Essential (primary) hypertension Category: Medical Plan: Continue amlodipine, follow-up in 6 months Orders: Orders UA w Microscopic 2 Weeks Z00.00 - Encounter for general adult medical examination without abnormal findings AMB Urinalysis Automated Today Z13.9 - Encounter for screening, unspecified Pap Smear Today Z00.00 - Encounter for general adult medical examination without abnormal findings Medications: New norethindrone (contraceptive) (Anisa) 0.35 mg PO DAILY 84 tabs 3RF
[2025-06-22 09:17] VITALS: BP 134/80; PULSE 63; RESP 16; TEMP 36.7; O2SAT 99; BMI 27.6
--- OUTSIDE RECORDS SUMMARY | 2025-06-22 09:54 | XMS_ITS | Encounter Summary ---
Author Organization Formerly [facility] Address [address] [place] [address] Care Team Providers Care Direct Of Real Estate Name Role Phone VinceAbbey Mcmullen LINTER DRIER OPERATOR Unavailable Janey Rodarte MD Primary Care Provider [phone] Reason for Visit * Reason Comments Medication Refill Encounter Details Date Type Department Care Team (Late st Contact Info) Description 05/17/2019 Refill [facility] [address] [place] [phone] Lisbeth Bloom MD [address] [place] [address] [phone] Encounter for surveillance of contraceptive pills Social [...] pills documented in this encounter Care Teams Direct Of Real Estate Relationship Specialty Start Date End Date Janey Rodarte MD [address] [address] PCP - General Internal Medicine 02/12/19 09/30/21 Abbey Rubin, LINTER DRIER OPERATOR [address] [facility] [address] [place] [address] [facility] Community Culinary Director 06/29/1807/10 documented as of this encounter
--- OUTSIDE RECORDS SUMMARY | 2025-06-22 09:54 | XMS_ITS | Encounter Summary ---
Author Organization [facility] Address [address] [place] [address] Care Team Providers Care Solid Die Cutter Name Role Phone Abbey Donald MD Primary Care Provider Hanh Nobles MD Primary Care Provider Emily oquendo Encounter Details Date Type Department Care Team Description 08/31/2019 Telephone OBGYN - [place] [address] [place] [address] Cynthia Arroyo CNM [address] [place], [place] [phone] Social History Tobacco Use Types Packs/Day Years [...] on filedocumented in this encounter Care Teams Solid Die Cutter Relationship Specialty Start Date End Date Abbey Donald MD PCP - General Internal Medicine 08/16/19 09/07/19 Hanh Moran MD PCP - General Internal Medicine 09/08/19 documented as of this encounter
--- OUTSIDE RECORDS SUMMARY | 2025-06-22 09:54 | XMS_ITS | Encounter Summary ---
Author Organization Formerly [facility] Address [address] [place] [address] Care Team Providers Care Cad Draftsman Name Role Phone Wilfrid Razo DO Primary Care Provider + [phone] Abbey Rubin [facility] Unavailable [phone] Janey Rodarte MD Primary Care Provider [phone] Reason for Visit * Reason Comments Medication Refill Encounter Details Date Type Department Care Team (Late st Contact Info) Description 12/31/2018 Refill [facility] [address] [phone] Wilfrid Razo DO [address] [place] [address] Essential hypertension Social History Tobacco Use Types [...] hypertension documented in this encounter Care Teams Cad Draftsman Relationship Specialty Start Date End Date Wilfrid Razo DO PCP - General Internal Medicine 07/08/16 02/11/19 Janey Rodarte MD [address] [address] PCP - General Internal Medicine 02/12/19 09/30/21 Abbey Rubin, RESIDENCE LIFE COORDINATOR [address] [address] [facility] Community Media Aid 06/29/1807/10 documented as of this encounter
--- OUTSIDE RECORDS SUMMARY | 2025-06-22 09:54 | XMS_ITS | Encounter Summary ---
Author Organization [facility] Address [address] [place] [address] Care Team Providers Care Applications Architect Name Role Phone Wilfrid Razo DO Primary Care Provider [phone] Abbey Rubin [facility] Unavailable [phone] Janey Rodarte MD Primary Care Provider [phone] Reason for Visit * Reason Comments Medication Refill Encounter Details Date Type Department Care Team (Late st Contact Info) Description 02/05/2019 Refill [facility] [address] [place] [phone] Barrett Gallegos MD Needs valid address Encounter [...] pills documented in this encounter Care Teams Applications Architect Relationship Specialty Start Date End Date Wilfrid Razo DO PCP - General Internal Medicine 07/08/16 02/11/19 Janey Rodarte MD [address] [facility] [address] PCP - General Internal Medicine 02/12/19 09/30/21 Abbey Rubin, [facility] [address] [facility] [address] [place] [address] [facility] Community Net Application Support Specialist 06/29/1807/10 documented as of this encounter
--- OUTSIDE RECORDS SUMMARY | 2025-06-22 09:54 | XMS_ITS | Encounter Summary ---
Author Organization [facility] Address [address] [place] [address] Care Team Providers Care Student Education Specialist Name Role Phone Wilfrid Razo DO Primary Care Provider [phone] Abbey Rubin [facility] Unavailable [phone] Janey Rodarte MD Primary Care Provider [phone] Encounter Details Date Type Department Care Team (Late st Contact Info) Description 07/17/2017 Scanned Document [facility] [address] [phone] Wilfrid Razo DO [address] [place] [phone] Social History Tobacco Use Types Packs/Day Years [...] on filedocumented in this encounter Care Teams Student Education Specialist Relationship Specialty Start Date End Date Wilfrid Razo DO PCP - General Internal Medicine 07/08/16 02/11/19 Janey Rodarte MD [address] [facility] [address] PCP - General Internal Medicine 02/12/19 09/30/21 Abbey Rubin, [facility] [address] [address] [facility] Community Parenting Skills Instructor 06/29/1807/10 documented as of this encounter
--- OUTSIDE RECORDS SUMMARY | 2025-06-22 09:54 | XMS_ITS | Clinical Summary ---
Author Organization [address] Address [address] [place] [address] Phone Care Team Providers Care Ccnp Name Role Phone Hanh Moran MD Primary Care Provider [phone] Encounters Date Type Department Care Team Description 03/25/2025 Lab Requisition [facility] - Main Lab [address] [facility] [place] [address] Elo Correa MD Urinary tract infection, site not specified from Last 3 Months Surgical History Surgery Date Site/Laterality Comments APPENDECTOMY 2006 PROCEDURE: OR APPENDEC INDICATED PURPOSE OTH MAJOR PX NOT [...] Years) (1 of 2 - PCV) 2008 HPV Vaccines (1 - 3-dose SCD M series) 2016 Cholesterol Screening (Lipid Panel) 07/27/2022 HIV Screening 07/27/2022 Social Influencers of Health Screening 07/27/2022 Hypertension/CHF/CAD Annual BMP Blood Test 07/28/2022 Depression Screening 08/18/2024 Cervical Cancer Screening: P ap Smear 10/05/2024 10/05/2021, 07/21/2019 COVID-19 Vaccine ( - 2023-2 5 season) 2025 Influenza Vaccine (#1) 2025 06/23/2019 DTaP,Tdap,and Td Vaccines (4 - Td or Tdap) 01/25/2032 01/24/2022, 12/02/2019, 08/10/2014 RSV Immunization Adult Patients (1 - 1-dose 75+ series) 2064 Hepatitis B Vaccines Completed 04/12/2015, 10/06/2014, 08/24/2014 [...] Urine No growth 03/26/2025 9:14 AM EDT [facility] Urine Urine specimen from urethra / Unknown 03/25/2025 03/25/2025 12:05 PM EDT Elo Correa MD LAB MICROBIOLOGY - GENER AL ORDERABLES Final Result [facility] [address] [place] [address], * Pap smear (10/05/2021) 10/05/2021 Narrative HISTORICAL TESTING LAB RESULTING AGENCY - 10/22/2021 7:26 AM EST [id number] THINPREP PAP, IMAGED: NEGATIVE FOR SQUAMOUS INTRAEPITHELIAL [...] Most Recently Relevant to Health Maintenance Insurance [facility] [employer] [facility] Care Teams Ccnp Relationship Specialty Start Date End Date Hanh Moran MD [address] [place] [phone] PCP - General Internal Medicine 03/25/25
--- OUTSIDE RECORDS SUMMARY | 2025-06-22 09:54 | XMS_ITS | Encounter Summary ---
Author Organization Formerly [facility] Address [address] [place] [address] Care Team Providers Care Stick Feeder Name Role Phone Wilfrid Razo DO Primary Care Provider [phone] Abbey Rubin [facility] Unavailable [phone] Janey Rodarte MD Primary Care Provider [phone] Encounter Details Date Type Department Care Team (Late st Contact Info) Description 10/01/2017 Scanned Document [facility] [address] [phone] Wilfrid Razo DO [address] [place] [address] Social History Tobacco Use Types Packs/Day Years [...] on filedocumented in this encounter Care Teams Stick Feeder Relationship Specialty Start Date End Date Wilfrid Razo DO PCP - General Internal Medicine 07/08/16 02/11/19 Janey Rodarte MD [address] [facility] [place] [address] PCP - General Internal Medicine 02/12/19 09/30/21 Abbey Rubin, [facility] [address] [address] [facility] Community Blasting Entryman 06/29/1807/10 documented as of this encounter
--- OUTSIDE RECORDS SUMMARY | 2025-06-22 09:54 | XMS_ITS | Clinical Summary ---
Author Organization [facility] Address [address] [place] [address] Care Team Providers Care Lean Engineer Name Role Phone Unavailable Primary Care Provider [...] to Confirmation (12/19/2017 4:27 PM EDT) Pathologist [facility] HIV 1/2 Ag/Ab CMIA Nonreactive Nonreactive HOSPITAL LAB Comment: Results show no evidence of infection by HIV 1/2. If clinically indicated, repeat CMIA or test by nucleic acid amplification. Performed at [facility], [place], [place] License 0385 CLIA [id number] Blood specimen (specimen) Blood specimen / Unknown 12/19/2017 4:27 PM EDT 12/19/2017 6:25 PM EDT us Patria Markham CN LAB BLOOD ORDERABLES Final Resu lt HOSPITAL LAB * Hepatitis C Virus (HCV) Antibody (12/19/2017 4:27 PM EDT) Hepatitis C Antibody 0.07 0.00 - 0.79 S/CO ratio HOSPITAL LAB Comment: Nonreactive Performed at [facility], [place], [place] License 0386 CLIA [id number] Blood specimen (specimen) Blood specimen / Unknown 12/19/2017 4:27 PM EDT 12/19/2017 6:25 PM EDT Patria Markham CN LAB BLOOD ORDERABLES Final Resu lt HOSPITAL LAB from Last 3 Months or Most Recently Relevant to Health Maintenance Insurance MEDICAID OUT OF STATE [facility]
--- OUTSIDE RECORDS SUMMARY | 2025-06-22 09:54 | XMS_ITS | Clinical Summary ---
Author Organization [facility] Address [address] [place] [address] Care Team Providers Care Structural Steel Fitter Name Role Phone Jhoan Pederson MD Primary [...] age to complete this topic Care Teams Structural Steel Fitter Relationship Specialty Start Date End Date Jhoan Pederson MD PCP - General 03/24/23 Jhoan Pederson MD PCP - Backup PCP Family Medicine 09/17/23
--- OUTSIDE RECORDS SUMMARY | 2025-06-22 09:54 | XMS_ITS | Encounter Summary ---
Author Organization [facility] Address [address] [place] [address] Care Team Providers Care Director Alliance Marketing Name Role Phone Hanh Moran MD Primary Care Provider Emily oquendo Encounter Details Date Type Department Care Team Description 04/15/2022 Orders Only Medical Records [address] [place] [address] Hussain Childers CNM [address] [place] [address] Social History Tobacco Use Types Packs/Day Years [...] on filedocumented in this encounter Care Teams Director Alliance Marketing Relationship Specialty Start Date End Date Hanh Moran MD PCP - General Internal Medicine 09/08/19 documented as of this encounter
--- OUTSIDE RECORDS SUMMARY | 2025-06-22 09:54 | XMS_ITS | Encounter Summary ---
Author Organization [facility] Address [address] [place] [address] Care Team Providers Care Manager Editorial Name Role Phone Hanh Moran MD Primary Care Provider [phone] Encounter Details Date Type Department Care Team (Late st Contact Info) Description 03/25/2025 Lab Requisition [facility] - Main Lab [address] [facility] [place] [address] Elo Correa MD [address] [place] [address] Urinary tract infection, site not specified Social [...] Urine No growth 03/26/2025 9:14 AM EDT [facility] Urine Urine specimen from urethra / Unknown 03/25/2025 03/25/2025 12:05 PM EDT us Elo Correa MD LAB MICROBIOLOGY - GENER AL ORDERABLES Final Result [facility] [address] [place] [address], documented in this encounter Visit Diagnoses Diagnosis Urinary tract infection, site not specified documented in this encounter Care Teams Manager Editorial Relationship Specialty Start Date End Date Hanh Moran MD [address] [place] [address] PCP - General Internal Medicine 03/25/25 documented as of this encounter
--- OUTSIDE RECORDS SUMMARY | 2025-06-22 09:54 | XMS_ITS | Encounter Summary ---
Author Organization [facility] Address [address] [place] [address] Care Team Providers Care Vehicle Window Tinter Name Role Phone Wilfrid Razo Primary Care Provider [phone] Abeby Rubin [facility] Unavailable [phone] Janey Rodarte MD Primary Care Provider [phone] Reason for Visit * Reason Comments Medication Refill Encounter Details Date Type Department Care Team (Late st Contact Info) Description 11/04/2017 Refill [facility] [address] [place] [phone] Lisbeth Bloom MD [address] [place], [place] [phone] Encounter for gynecological examination without abnormal finding; [...] pills documented in this encounter Care Teams Vehicle Window Tinter Relationship Specialty Start Date End Date LauritaWilfrid leon DO [place] PCP - General Internal Medicine 07/08/16 02/11/19 Janey Rodarte MD [address]/[place] [address] PCP - General Internal Medicine 02/12/19 09/30/21 Abbey Rubin, SET UP MECHANIC CROWN ASSEMBLY MACHINE [address] [facility] [address] [place] [address] [facility] Community Marine Pilot 06/29/1807/10 documented as of this encounter
--- OUTSIDE RECORDS SUMMARY | 2025-06-22 09:54 | XMS_ITS | Encounter Summary ---
Author Organization [facility] Address [address] [place] [address] Care Team Providers Care Paster Hat Lining Name Role Phone Hanh Moran MD Primary Care Provider [phone] Encounter Details Date Type Department Care Team (Late st Contact Info) Description 06/22/2024 Lab Requisition [facility] - Main Lab [address] [facility] [place] [phone] Malaika Garcia NP [address] [address] Frequency of micturition Social History Tobacco Use [...] harris isolated 06/23/2024 11:23 AM EST [facility] Other Topography unknown / Unknown 06/21/2024 06/22/2024 10:37 AM EST us Malaika Garcia MANAGER MEDICAID LAB MICROBIOLOGY - GENERA L ORDERABLES Final Result [facility] [address] [place] [address], documented in this encounter Visit Diagnoses Diagnosis Frequency of micturition Urinary frequency documented in this encounter Care Teams Paster Hat Lining Relationship Specialty Start Date End Date Hanh Moran MD [address] [place] [address] PCP - General Internal Medicine 03/25/25 documented as of this encounter
--- OUTSIDE RECORDS SUMMARY | 2025-06-22 09:55 | XMS_ITS | Clinical Summary ---
Author Organization [facility] Address [address] [place] [address] Care Team Providers Care Childcare Aide Name Role Phone Hanh Moran MD Primary [...] given mild range and asymptomatic. Unlikely to bladder changer. She was counseled re: signs and sx for which to present for evaluation. Resolved Problems Problem Noted Date Resolved Date affected by growth restriction 0 02/09/2022 05/28/2022 Overview: 03/05/22 - EFW 16%ile, no longer considered FGR, increased surveillance no longer indicated NEW DEFINITION: FGR = AC<10%ile or EFW <10%ile Urgent consult to MFM at diagnosis - ordered Genetic counseling/testing if not previously done - FIRST SCREEN NEGATIVE Level 2 US if < 35 weeks Growth US Q 3-4 weeks Twice weekly testing- one NST and one BPP with VANESSA, Dopplers Transfer if severe FGR (<1800 g at delivery) Deliver at FLC 38-39 6/7 weeks if isolated without comorbidity Transfer to [facility] with plan for early delivery for: Abnormal Doppler (> 95%, or absent or reverse end-diastolic flow) EFW < 2500 gm (or based on peds cutoff) Gestational age < 37 weeks (or based on your peds cutoff). Oligohydramnios if prompt delivery cannot be achieved while in labor. anomalies Severe polyhydramnios (due to resuscitation needs) Any clinical scenario where constitutional etiology is clearly not suspected (very big parents or prior large babies, but IUGR with this ). *MFM will help with delivery planning if abnormal [...] Supervision of high-risk 09/26/2021 05/28/2022 Overview: 1. [place] site: [place] 2. Delivery site: [facility] 3. Mobile Mommas: NO 4. Dating criteria: LMP only 5. Blood type: A+ 6. Genetic screeninst trimester Date: 10/16/21 Result: Neg, AFP 11/13/2021 negative 6. GBS: Date: 03/25 Negative 7. FOB name: Nando Kaba 8. Plans A. Epidural or other pain management - Epidural B. Labor support identified - Nando uGillaume Tdap - Date: 01/24/22, Flu - Date: [...] fall associated with vaginal bleeding FWBR 1. [facility] site: [place] [address] 2. Delivery site: [facility] 3. Dating criteria: LMP only 3. [...] 06/11/2021 Influenza Vaccine-quadrivalent 4 Years Plus 01/2019 Csftnvy-Beesi-Ujzunnal + 07/12/2019 Tdap 01/24/2022,12/02/2019 Varicella Titre-Positive + [...] Grandmother No Known Problems Sister maternal h residential sister CA Breast Negative Hx CA Ovarian [...] CERVICAL CANCER SCREENING 10/05/2024 10/05/2021, 11/2018 INFLUENZA (#1) 2025 06/11/2021, 06/23/2019 DTAP/TDAP/TD (3 - Td or Tdap) 01/25/2032 01/24/2022, 12/02/2019 PNEUMOCOCCAL VACCINE FOR HIG H RISK PATIENTS (#1) 2054 Care Teams Childcare Aide Relationship Specialty Start Date End Date Hanh Moran MD PCP - General Internal Medicine 09/08/19
--- OUTSIDE RECORDS SUMMARY | 2025-06-22 09:55 | XMS_ITS | Encounter Summary ---
Author Organization [facility] Address [address] [place] [address] Care Team Providers Care Semi Truck Driver Name Role Phone Hanh Moran MD Primary Care Provider Emily oquendo Encounter Details Date Type Department Care Team Description 10/16/2021 Orders Only Ultrasound - [address] [address] Miriam Hong MD [address] [place] [address] [place] [id number] First trimester screening (Primary Dx) Social History [...] FIRST SCREEN (10/16/2021 9:26 AM EST) Pathologist [facility] FIRST SCREEN SCREEN NEGATIVE 10/20/2021 8:25 AM EST [facility] 10/16/2021 9:26 AM EST 10/16/2021 9:27 AM EST Narrative [facility] - 10/20/2021 8:25 AM EST Release to patient->Immediate Miriam Hong MD LAB [facility] documented in this encounter Visit Diagnoses Diagnosis First trimester screening- Primary Other specified screening Chronic hypertension documented in this encounter Care Teams Semi Truck Driver Relationship Specialty Start Date End Date Hanh Moran MD PCP - General Internal Medicine 09/08/19 documented as of this encounter
--- OUTSIDE RECORDS SUMMARY | 2025-06-22 09:55 | XMS_ITS | Encounter Summary ---
Author Organization [facility] Address [address] [place] [address] Care Team Providers Care Excel Vba Developer Name Role Phone Hanh Moran MD Primary Care Provider [phone] Encounter Details Date Type Department Care Team (Late st Contact Info) Description [address] [facility] - Main Lab [address] [place] [phone] Stanley Drake MD [address] [facility] [address] [place] [address] Dysuria Social History Tobacco Use Types Packs/Day [...] if clinically indicated. 12/11/2024 10:22 AM EDT [facility] Urine Urine specimen from urethra / Unknown 2024 2024 1:10 PM EDT us Stanley Drake MD LAB MICROBIOLOGY - G ENERAL ORDERABLES Final Result [facility] [address] [place] [address], documented in this encounter Visit Diagnoses Diagnosis Dysuria documented in this encounter Care Teams Excel Vba Developer Relationship Specialty Start Date End Date Hanh Moran MD [address] [place] [address] PCP - General Internal Medicine 03/25/25 documented as of this encounter
--- OUTSIDE RECORDS SUMMARY | 2025-06-22 09:55 | XMS_ITS | Encounter Summary ---
Author Organization [facility] Address [address] [place] [address] Care Team Providers Care Regulatory Law Specialist Name Role Phone Hanh Moran MD Primary Care Provider Unavaila ble Reason for Visit * Reason Onset Date Comments DME Request 02/07/2022 ELECTRIC BREAST PUMP Encounter Details Date Type Department Care Team Description 02/07/2022 Telephone [facility] - [place] [address] [place] [address] Miriam Hong MD [address] [place] [address] DME Request (ELECTRIC BREAST PUMP) Social History Tobacco Use Types Packs/Day Years [...] suspected to have Coronavirus/COVID-19? No / Unsure 02/07/2022 7:57 AM EDT documented as of this encounter Miscellaneous Notes * Telephone Encounter - Maria Gambino - 02/14/2022 9:58 AM EDT Pt returned the call - same number * Telephone Encounter - Lacie Anderson - 02/14/2022 9:32 AM EDT Lm for patient to call regarding bpp and nst schedule PK * Telephone Encounter - Ana Cuellar M.A. - 02/07/2022 4:25 PM EDT Pump order was signed and faxed . -KM * Telephone Encounter - Emily Quinones - 02/07/2022 2:03 PM EDT Name of Product: Electric breast pump Specific information about product [id number] # Needed 1 Reason patient is asking for this supply? Lactating mother Have you received this supply before? If yes , when?: no Have you discussed the need for this supply with a provider at a recent visit? NO If yes, with who and when? N/A When completed: Fax to other office/MD at fax # [phone] Have you told the patient it will take 7-10 days for completion of this request? NO FORM PLACED IN MA BIN AT INVOICE CODER documented in this encounter Plan of Treatment Not on file documented as of this encounter Visit Diagnoses Not on filedocumented in this encounter Care Teams Regulatory Law Specialist Relationship Specialty Start Date End Date Hanh Moran MD PCP - General Internal Medicine 09/08/19 documented as of this encounter
--- OUTSIDE RECORDS SUMMARY | 2025-06-22 09:55 | XMS_ITS | Encounter Summary ---
Author Organization [facility] Address [address] [place] [address] Care Team Providers Care Coupling Machine Operator Name Role Phone Hanh Moran MD Primary Care Provider [phone] Encounter Details Date Type Department Care Team (Late st Contact Info) Description 08/20/2024 Lab Requisition [facility] - Main Lab [address] [place] [phone] Stanley Drake MD [address] [facility] [address] [place] [address] Dysuria Social History Tobacco Use Types Packs/Day [...] if clinically indicated. 08/20/2024 11:23 AM EST [facility] Other Urine specimen from urethra / Unknown 08/19/2024 08/20/2024 10:48 AM EST us Stanley Drake MD LAB MICROBIOLOGY - G ENERAL ORDERABLES Final Result [facility] [address] [place] [address], documented in this encounter Visit Diagnoses Diagnosis Dysuria documented in this encounter Care Teams Coupling Machine Operator Relationship Specialty Start Date End Date Hanh Moran MD [address] [place] [address] PCP - General Internal Medicine 03/25/25 documented as of this encounter
--- OUTSIDE RECORDS SUMMARY | 2025-06-22 09:55 | XMS_ITS | Encounter Summary ---
Author Organization [facility] Address [address] [place] [address] Care Team Providers Care String Winding Machine Operator Name Role Phone Hanh Moran MD Primary Care Provider Emily oquendo Encounter Details Date Type Department Care Team Description 01/11/2020 Hospital Medical Records [address] [place] [address] Evy Jacobo, [place] [address] [place] [address] Social History Tobacco Use Types Packs/Day Years [...] on filedocumented in this encounter Care Teams String Winding Machine Operator Relationship Specialty Start Date End Date Hanh Moran MD PCP - General Internal Medicine 09/08/19 documented as of this encounter
--- OUTSIDE RECORDS SUMMARY | 2025-06-22 09:55 | XMS_ITS | Encounter Summary ---
Author Organization [facility] Address [address] [place] [address] Care Team Providers Care Sap Abap Programmer Name Role Phone Hanh Moran MD Primary Care Provider [phone] Encounter Details Date Type Department Care Team (Late st Contact Info) Description 08/17/2024 Lab Requisition [facility] - Main Lab [address] [place] [phone] Stanley Drake MD [address] [facility] [address] [place] [address] Dysuria Social History Tobacco Use Types Packs/Day [...] Final Result [facility] [address] [place] [address], documented in this encounter Visit Diagnoses Diagnosis Dysuria documented in this encounter Care Teams Sap Abap Programmer Relationship Specialty Start Date End Date Hanh Moran MD [address] [place] [address] PCP - General Internal Medicine 03/25/25 documented as of this encounter
--- OUTSIDE RECORDS SUMMARY | 2025-06-22 09:55 | XMS_ITS | Encounter Summary ---
Author Organization [facility] Address [address] [place] [address] Care Team Providers Care On Call Pharmacy Technician Name Role Phone Hanh Moran MD Primary Care Provider Emily oquendo Encounter Details Date Type Department Care Team Description 12/30/2019 Orders Only Ultrasound - [address] [address] Miriam Hong MD [address] [place] [address] Multigravida in first trimester (Primary Dx) Social History Tobacco Use Types [...] as of this encounter Plan of Treatment Scheduled Orders Name Type Priority Associated Diagnoses Orde r Schedule FIRST SCREEN Lab Routine Multigravida in first trimester Expected: 12/30/2019, Expires: 12/29/2020 documented as of this encounter Visit Diagnoses Diagnosis Multigravida in first trimester- Primary documented in this encounter Care Teams On Call Pharmacy Technician Relationship Specialty Start Date End Date Hanh Moran MD PCP - General Internal Medicine 09/08/19 documented as of this encounter
--- OUTSIDE RECORDS SUMMARY | 2025-06-22 09:55 | XMS_ITS | Encounter Summary ---
Author Organization [facility] Address [address] [place] [address] Care Team Providers Care Shop Supervisor Name Role Phone Hanh Moran MD Primary Care Provider [phone] Encounter Details Date Type Department Care Team (Late st Contact Info) Description 11/26/2024 Lab Requisition [facility] - Main Lab [address] [place] [address] Stanley Drake MD [address] [facility] [address] [place] [address] Urinary tract infection, site not specified Social [...] if clinically indicated. 11/27/2024 12:54 PM EDT [facility] Urine Urine specimen obtained by clean catch procedure / Unknown 11/26/2024 2:08 PM EDT 11/26/2024 5:54 PM EDT us Stanley Drake MD LAB MICROBIOLOGY - G ENERAL ORDERABLES Final Result [facility] [address] [place] [address], documented in this encounter Visit Diagnoses Diagnosis Urinary tract infection, site not specified documented in this encounter Care Teams Shop Supervisor Relationship Specialty Start Date End Date Hanh Moran MD [address] [place] [address] PCP - General Internal Medicine 03/25/25 documented as of this encounter
--- OUTSIDE RECORDS SUMMARY | 2025-06-22 09:55 | XMS_ITS | Encounter Summary ---
Author Organization [facility] Address [address] [place] [address] Care Team Providers Care Electron Gun Assembler Name Role Phone [facility], Pcp Primary Care Provider Abbey Peraza MD Primary Care Provider Hanh Nobles MD Primary Care Provider Unavailhoang ble Reason for Visit * Reason Onset Date Comments Form 07/23/2019 Encounter Details Date Type Department Care Team Description 07/23/2019 Telephone OBGYN - [place] [address] [place] [address] Danilo Cervantes MD [address] [place] [address] Form Social History Tobacco Use Types Packs/Day [...] appt in August. Form placed in pt cloth picker bin at the front.-AC documented in this encounter Plan of Treatment Not on file documented as of this encounter Visit Diagnoses Not on filedocumented in this encounter Care Teams Electron Gun Assembler Relationship Specialty Start Date End Date Community, Pcp PCP - General Internal Medicine 05/31/19 08/15/19 Abbey Donald MD PCP - General Internal Medicine 08/16/19 09/07/19 Hanh Moran MD PCP - General Internal Medicine 09/08/19 documented as of this encounter
--- OUTSIDE RECORDS SUMMARY | 2025-06-22 09:55 | XMS_ITS | Clinical Summary ---
Author Organization [facility] Address [address] [place] [address] Care Team Providers Care Safety Intern Name Role Phone Unavailable Primary Care Provider [...]
--- OUTSIDE RECORDS SUMMARY | 2025-06-22 09:55 | XMS_ITS | Clinical Summary ---
Author Organization [facility] Address [address] [place] [address] Care Team Providers Care Cupola Melter Name Role Phone Unavailable Primary Care Provider [...] so, obtain the minor's consent prior to disclosure.[facility] Social History Tobacco Use Types [...]
--- OUTSIDE RECORDS SUMMARY | 2025-06-22 09:55 | XMS_ITS | Encounter Summary ---
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 2/18/22 IP Does patient have an [...] the end of the day? NO Payor: [facility] / Plan: [facility] / Product Type: MEDICAID RISK documented in this encounter Plan of Treatment Not on file documented as of this encounter Visit Diagnoses Not on filedocumented in this encounter Care Teams Stave Mill Hand Relationship Specialty Start Date End Date Hanh Moran MD PCP - General Internal Medicine 09/08/19 documented as of this encounter
--- OUTSIDE RECORDS SUMMARY | 2025-06-22 09:55 | XMS_ITS | Encounter Summary ---
Author Organization [facility] Address [address] [place] [address] Care Team Providers Care Para Operator Name Role Phone Community, Pcp Primary Care Provider Abbey Peraza MD Primary Care Provider Hanh Nobles MD Primary Care Provider Emily oquendo Encounter Details Date Type Department Care Team Description 07/20/2019 Orders Only Ultrasound - [address] [address] Roseanna Bernabe, DO [address] [place] [address] Encounter for supervision of other normal in first trimester (Primary Dx) Social History Tobacco Use Types Packs/Day Years Used Date Smoking Tobacco: Never Smokeless Tobacco: Never Alcohol Use Standard Drinks/Week Comments Yes 2 (1 standard drink = 0.6 oz [...] of this encounter Results * FIRST SCREEN (07/20/2019 10:41 AM EST) FIRST SCREEN SCREEN NEGATIVE 07/25/2019 11:30 AM EST [facility] 07/20/2019 10:4 1 AM EST 07/20/2019 10:41 AM EST Roseanna Bernabe DO LAB [facility] [email or web address] documented in this encounter Visit Diagnoses Diagnosis Encounter for supervision of other normal in first trimester- Primary documented in this encounter Care Teams Para Operator Relationship Specialty Start Date End Date Community, Pcp PCP - General Internal Medicine 05/31/19 08/15/19 Abbey Donald MD PCP - General Internal Medicine 08/16/19 09/07/19 Hanh Moran MD PCP - General Internal Medicine 09/08/19 documented as of this encounter
== END 2025-06-22 10:02 | disposition home or self-care (01) ==
LOC: HO.HMCC 09:10
PROVIDERS: PCP Internal Medicine; Visit Provider Internal Medicine
DX: Z00.00 Encounter for general adult medical examination without abnormal findings (principal); I10 Essential (primary) hypertension; Z13.9 Encounter for screening, unspecified

== ENCOUNTER 2025-06-22 09:09 | Outpatient (REF) | payer OTHER, SELFPAY | END 2025-06-22 09:10 | disposition home or self-care (01) | LOC: HO.LNP 09:09 | PROVIDERS: PCP Internal Medicine; Visit Provider Internal Medicine | DX: Z00.00 Encounter for general adult medical examination without abnormal findings (principal); I10 Essential (primary) hypertension | CPT/HCPCS: 81003; 88175; 99395 ==

== ENCOUNTER 2025-07-07 07:33 | Outpatient (REF) | payer OTHER, SELFPAY ==
--- OUTSIDE RECORDS SUMMARY | 2025-07-07 07:35 | XMS_ITS | Clinical Summary ---
Author Organization [facility] Address [address] [place] [address] Care Team Providers Care Non Destructive Evaluation Specialist Name Role Phone Unavailable Primary Care Provider [...] to Confirmation (12/19/2017 4:27 PM EDT) Pathologist [facility] HIV 1/2 Ag/Ab CMIA Nonreactive Nonreactive HOSPITAL LAB Comment: Results show no evidence of infection by HIV 1/2. If clinically indicated, repeat CMIA or test by nucleic acid amplification. Performed at [facility], [place], [place] License 0385 CLIA [id number] Blood specimen (specimen) Blood specimen / Unknown 12/19/2017 4:27 PM EDT 12/19/2017 6:25 PM EDT us Patria Markham CN LAB BLOOD ORDERABLES Final Resu lt HOSPITAL LAB * Hepatitis C Virus (HCV) Antibody (12/19/2017 4:27 PM EDT) Hepatitis C Antibody 0.07 0.00 - 0.79 S/CO ratio HOSPITAL LAB Comment: Nonreactive Performed at [facility], [place], [place] License 0387 CLIA [id number] Blood specimen (specimen) Blood specimen / Unknown 12/19/2017 4:27 PM EDT 12/19/2017 6:25 PM EDT Patria Markham CN LAB BLOOD ORDERABLES Final Resu lt HOSPITAL LAB from Last 3 Months or Most Recently Relevant to Health Maintenance Insurance MEDICAID OUT OF STATE [facility]
--- OUTSIDE RECORDS SUMMARY | 2025-07-07 07:36 | XMS_ITS | Encounter Summary ---
Author Organization [facility] Address [address] [place] [address] Care Team Providers Care Agricultural Production Engineer Name Role Phone Wilfrid Razo DO Primary Care Provider [phone] Abbey Rubin [facility] Unavailable [phone] Janey Rodarte MD Primary Care Provider [phone] Encounter Details Date Type Department Care Team (Late st Contact Info) Description 10/01/2017 Scanned Document [facility] [address] [place] [phone] Wilfrid Razo DO [address] [place] [address] Social History Tobacco Use Types Packs/Day Years [...] on filedocumented in this encounter Care Teams Agricultural Production Engineer Relationship Specialty Start Date End Date Wilfrid Razo DO PCP - General Internal Medicine 07/08/16 02/11/19 Janey Rodarte MD [address] [facility] [address] PCP - General Internal Medicine 02/12/19 09/30/21 Abbey Rubin, [facility] [address] [address] [facility] Community Medical Records Supervisor 06/29/1807/10 documented as of this encounter
--- OUTSIDE RECORDS SUMMARY | 2025-07-07 07:36 | XMS_ITS | Clinical Summary ---
Author Organization [facility] Address [address] [place] [address] Care Team Providers Care Highway Patrol Officer Name Role Phone Jhoan Pederson MD Primary [...] age to complete this topic Care Teams Highway Patrol Officer Relationship Specialty Start Date End Date Jhoan Pederson MD PCP - General 03/24/23 Jhoan Pederson MD PCP - Backup PCP Family Medicine 09/17/23
--- OUTSIDE RECORDS SUMMARY | 2025-07-07 07:36 | XMS_ITS | Encounter Summary ---
Author Organization [facility] Address [address] [place] [address] Care Team Providers Care Medical Representative Name Role Phone Wilfrid Razo DO Primary Care Provider [phone] Abbey Rubin [facility] Unavailable [phone] Janey Rodarte MD Primary Care Provider [phone] Encounter Details Date Type Department Care Team (Late st Contact Info) Description 07/17/2017 Scanned Document [facility] [address] [place] [phone] Wilfrid Razo DO [address] [place] [address] Social History Tobacco Use Types Packs/Day Years [...] on filedocumented in this encounter Care Teams Medical Representative Relationship Specialty Start Date End Date Wilfrid Razo DO PCP - General Internal Medicine 07/08/16 02/11/19 Janey Rodarte MD [address] [facility] [place] [address] PCP - General Internal Medicine 02/12/19 09/30/21 Abbey Rubin, [facility] [address] [address] [facility] Community Concrete Pipe Maker 06/29/1807/10 documented as of this encounter
--- OUTSIDE RECORDS SUMMARY | 2025-07-07 07:36 | XMS_ITS | Clinical Summary ---
Author Organization [facility] Address [address] [place] [address] Care Team Providers Care Preprint Analyst Name Role Phone Unavailable Primary Care [...]
--- OUTSIDE RECORDS SUMMARY | 2025-07-07 07:36 | XMS_ITS | Clinical Summary ---
Author Organization [facility] Address [address] [place] [address] Care Team Providers Care Wireless Technician Name Role Phone Unavailable Primary Care Provider [...]
[2025-07-07 10:39] LABS: Appearance Urine Cloudy; Glucose Urine UA Negative (Negative); PH 6.0 (5.0-9.0); Specific Gravity - Urine 1.020 (1.005-1.025); UMIC TRIGGER UA YES
== END 2025-07-07 07:34 | disposition home or self-care (01) ==
LOC: HO.HMGCLDS 07:33
PROVIDERS: PCP Internal Medicine; Visit Provider Internal Medicine
DX: Z00.00 Encounter for general adult medical examination without abnormal findings (principal)
CPT/HCPCS: 81001